=== PATIENT | female | born 1995 | race Caucasian/White ===

== ENCOUNTER 2024-08-07 09:47 | Outpatient (AMB) | payer OTHER, SELFPAY ==
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
[2024-08-07 09:58] VITALS: BP 98/72; PULSE 64; O2SAT 98; BMI 29.9
== END 2024-08-07 10:21 | disposition home or self-care (01) ==
PROVIDERS: Absent Provider Psychiatry & Neurology Neurology; PCP Student in an Organized Health Care Education/Training Program; Visit Provider Psychiatry & Neurology Neurology
DX: R42 Dizziness and giddiness (principal); G43.109 Migraine with aura, not intractable, without status migrainosus
CPT/HCPCS: 99203

== ENCOUNTER → 2024-08-07 09:47 | Outpatient (BNVA) | payer OTHER, SELFPAY | PROVIDERS: Absent Provider Psychiatry & Neurology Neurology; PCP Student in an Organized Health Care Education/Training Program; Visit Provider Psychiatry & Neurology Neurology | DX: R42 Dizziness and giddiness (principal); G43.109 Migraine with aura, not intractable, without status migrainosus | CPT/HCPCS: 99202 ==

== ENCOUNTER 2024-10-06 10:05 | Outpatient (AMB) | payer OTHER, SELFPAY ==
[2024-10-06 10:07] VITALS: BP 106/74; BMI 29.9
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
--- OUTSIDE RECORDS SUMMARY | 2024-10-06 10:43 | XMS_ITS | Clinical Summary ---
Author Organization [facility] Address [address] [place] [address] Care Team Providers Care Dam Tender Assistant Name Role Phone RaullaneNaga Primary Care Provider [phone] Source Comments PLEASE NOTE, if this patient is a minor, it may be UNLAWFUL to discuss sensitive information that is contained in these records (such as FAMILY PLANNING, MENTAL HEALTH or SUBSTANCE ABUSE) with the minor patient's parent or other person without the patient's specific authorization.[facility] Allergies No known active allergies Medications polyethylene glycol (GLYCOLAX, MIRALAX) 17 gram/dose powder 0 6 Active VITAMIN B-6 25 mg tablet TK 1 T PO TID 0 6 Active beclomethasone (QVAR) 40 mcg/actuation inhalerIndications :Mild intermittent asthma without complication Inhale 2 Puffs into the lungs 2 (two) times daily. 1 Inhaler 3 6 Active ondansetron (ZOFRAN-ODT) 4 mg disintegrating tabletIndications: Nausea and vomiting in Take 1 Tab by mouth every 8 (eight) hours as needed for nausea. 10 Tab 0 6 Active nitrofurantoin, macrocrystal-monoh ydrate, (MACROBID) 100 mg capsuleIndications :Burning with urination Take 1 Cap by mouth 2 (two) times daily 14 Cap 0 7 Active albuterol sulfate (PROAIR HFA) 90 mcg/actuation inhalerIndications :Mild intermittent asthma without complication Inhale 2 Puffs into the lungs every 4 (four) hours as needed for shortness of breath or wheezing 8 g 2 7 Active diphenhydrAMINE (BENADRYL) 25 mg tabletIndications: Environmental allergies Take 1 Tab by mouth nightly at bedtime as needed for allergies 30 Tab 7 Active Active Problems Problem Noted Date Diagnosed Date Gallstones 03/31/2016 Overview (03/31/2016): Noted in ED, referred to Dr. Brown, general surgery 03/14/2016 Overview (03/31/2016): 03/09/16 [facility] ED for nausea and vomiting; rec'd fluids, zofran, pepcid 03/23/16 [facility] ED, given Rx for Zofran. Mild intermittent asthma 09/02/2015 Immunizations Name Administration Dates Next Due TDAP 09/02/2015 Family History Medical History Relation Name Comments Vision Problems Father Asthma Mother Bleeding/Blood Disorder Mother Vision Problems Sister Relation Name Status Comments Father Alive Mother Alive Sister Social History Tobacco Use Types Packs/Day Years Used Date Smoking Tobacco: Never Smokeless Tobacco: Never Alcohol Use Standard Drinks/Week Comments No 0 (1 standard drink = 0.6 oz pur e alcohol) Social Connections Answer Date Recorded Social Connections and Isolation 0 04/27/2019 Financial Resource Strain Answer Date R ecorded Financial Resource Strain 0 2018 Stress Answer Date Recorded Stress 0 04/27/2019 Physical Activity Answer Date Recorded Physical Activity 0 04/27/2019 Food Insecurity Answer Date Recorded Food 0 04/27/2019 Transportation Needs Answer Date Record ed Transportation 0 04/27/2019 Housing Stability Answer Date Recorded Housing 0 04/27/2019 Safety and Environment Answer Date Kevan rded Safety 0 04/27/2019 Utilities Answer Date Recorded Utilities 0 04/27/2019 Employment Answer Date Recorded Employment 0 04/27/2019 Comments No Sex and Gender Information Value Date Recorded Sex Assigned at Female 07/17/2017 5:10 AM PST Legal Sex Female 10:54 AM PDT Gender Identity Female 07/17/2017 5:10 AM PST Sexual Orientation Straight 07/17/2017 5: 10 AM PST Occupation Industry Job Start Date Job End Date [employer] Not on file Not on file Not on file Last Filed Vital Signs Vital Sign Reading Time Taken Comments Blood Pressure 107/57 03/22/2018 2:51 PM EDT Pulse 67 03/22/2018 2:51 PM EDT Temperature 37.1 ??C (98.7 ??F) 03/22/2018 2:51 PM ED T Respiratory Rate 18 03/22/2018 2:51 PM EDT Oxygen Saturation 98% 03/22/2018 2:51 PM EDT Inhaled Oxygen Concentration - - Weight 81.5 kg (179 lb 11.2 oz) 07/16/2017 4:16 PM EST Height 152.4 cm (5') 07/16/2017 4:16 PM EST Body Mass Index 35.1 07/16/2017 4:16 PM EST Plan of Treatment Not on file Care Teams Dam Tender Assistant Relationship Specialty Start Date End Date Naga Martins FNP [address] [place] [phone] PCP - General Family Medicine, [employer] 04/15/18
--- OUTSIDE RECORDS SUMMARY | 2024-10-06 10:43 | XMS_ITS | Clinical Summary ---
Author Organization [facility] Address [address] [place] [address] Phone Care Team Providers Care Recep Name Role Phone Miranda Godwin MD Primary Care Provider [phone] Allergies No known active allergies Medications Medication Sig Dispensed Refills Start Date End Date Status benzoyl peroxide (Foaming Acne Face Wash) 10 % external wash Aplly 2 times/day 04/16/2023 Active multivitamin tablet Take by mouth. A ctive levETIRAcetam (KEPPRA) 500 mg tablet Take 1 tablet (500 mg total) by mouth 2 (two) times a day for 14 days. 28 tablet 09/22/2024 Active Active Problems Problem Noted Date Diagnosed Date Brain aneurysm 09/30/2024 Obesity (BMI 30-39.9) 04/16/2023 Obesity, Class III, BMI 40-49.9 (morbid obesity) 05/24/2022 Encounters Date Type Department Care Team Description 09/30/2024 11:30 AM EST Office Visit Internal Medicine - [place] [address] [facility] [address] [place] [address] Miranda Godwin MD Encounter for annual physical exam (Primary Dx); Acne, unspecified acne type; Pain of left lower extremity; Neck pain; Brain aneurysm; Vitamin D deficiency; Other fatigue; Encounter for lipid screening for cardiovascular disease; Other abnormal glucose 09/26/2024 Telephone Neurosurgery [place] [address] [place] [address] Magda Sullivan [place] APPOINTMENT CALL (Pt called 8:13AM to ask about her referral and scheduling appointment. Explained to Pt that we have reached out to Provider to review and schedule, to see Pt in [place]. Confirmed Pt information and explained we will continue to follow this today. Pt asked that we please get back to her as soon as we can. ) 09/22/2024 4:39 PM EST - 09/22/2024 11:16 PM EST Emergency [facility] Emergency [address] [place] [address] Miguel Mcduffie MD Right internal carotid artery aneurysm (Primary Dx) Discharge Disposition: Home or Self Care from Last 3 Months Surgical History Surgery Date Site/Laterality Comments CHOLECYSTECTOMY 2019 PROCEDURE: HI CHOLECYSTECTOMY Medical History Medical History Date Comments Heartburn DX:Heartburn Brain aneurysm Family History Medical History Relation Name Comments No Known Problems Brother 1 No Known Problems Brother 2 No Known Problems Father No Known Problems Maternal Grandfather Diabetes Maternal Grandmother Anemia Mother No Known Problems Sister 1 No Known Problems Sister 2 Breast cancer Neg Hx Colon cancer Neg Hx Ovarian cancer Neg Hx Relation Name Status Comments Brother 1 Alive Brother 2 Alive Father Alive Maternal Grandfather Alive Maternal Grandmother Alive Mother Alive Sister 1 Alive Sister 2 Alive Social History Tobacco Use Types Packs/Day Years Used Date Smoking Tobacco: Never Smokeless Tobacco: Never Tobacco Cessation:Counseling Given: Not Answered Alcohol Use Standard Drinks/Week Comments Never 0 (1 standard drink = 0.6 oz pur e alcohol) Housing Instability Answer Date Recorde d Are you worried that in the next 2 months you may not have stable housing? No 09/29/2024 Food Access & Nutrition Answer Date Rec orded Do you have access to a vari ety of food including fruits and vegetables? Yes 09/29/2024 Access to Healthcare Answer Date Record ed Within the last 3 months, larisa henao many times did you visit the emergency department for your medical care? 1 09/29/2024 Health Literacy Answer Date Recorded How often do you need to hav e someone help you when you read instructions, pamphlets, or other written material from your doctor or pharmacy? Never 09/29/2024 Caregiver: How often do you need to have someone help you when you read instructions, pamphlets, or other written material from your doctor or pharmacy? Not on file 09/29/2024 Financial Risk Answer Date Recorded How hard is it for you to pa y for the very basics like food, housing, medical care, and air conditioning / heating? Hard 09/29/2024 Transportation Answer Date Recorded Has the lack of transportati on kept you from meetings, work, or from getting things needed for daily living? No Has the lack of transportati on kept you from medical appointments or from getting medications? No 09/29/2024 Social Isolation Answer Date Recorded How often do you feel lonely or isolated from th ose around you? Rarely 09/29/2024 Food Risk Answer Date Recorded Within the past 12 months we worried whether our food would run out before we got money to buy more. Never true 025 Within the past 12 months th e food we bought just didn't last and we didn't have money to get more. Sometimes true 09/29/2024 Dependent Care Answer Date Recorded Do you need help finding or paying for care for your loved ones. For example, early childhood special educator or elderly care for an older adult? No 09/29/2024 Education Answer Date Recorded Do you think completing more education or training, like finishing a GED, going to college, or learning a trade, would be helpful for you? Yes 09/29/2024 Employment and Income Answer Date Recor ded During the last four weeks, have you been actively looking for work? No 09/29/2024 Living Situation Answer Date Recorded What is your living situation? 0 09/29/2024 Sex and Gender Information Value Date Recorded Sex Assigned at Female 09/22/2024 4:53 PM EST Gender Identity Female 09/22/2024 4:53 PM EST Sexual Orientation Straight 09/22/2024 4: 53 PM EST Job Start Date Occupation Industry Not on file Not on file Not on file Obstetrics History Last Filed Vital Signs Vital Sign Reading Time Taken Comments Blood Pressure 102/60 09/30/2024 11:40 AM EST Pulse 65 09/30/2024 11:40 AM EST Temperature 36.1 ??C (97 ??F) 09/30/2024 11:40 AM EST Respiratory Rate 17 09/22/2024 10:30 PM EST Oxygen Saturation 99% 09/30/2024 11:40 AM EST Inhaled Oxygen Concentration - - Weight 68 kg (150 lb) 09/30/2024 11:40 AM EST Height 152.4 cm (5') 09/30/2024 11:40 AM EST Body Mass Index 29.29 09/30/2024 11:40 AM EST Plan of Treatment Upcoming Encounters Date Type Department Care Team (Late st Contact Info) Description 10/24/2024 9:00 AM EST Consult [facility]surgery [place] [facility] [place] [address] [place] [phone] Shiva Rodarte MD [address] [facility] [address] [place] [address] 11/24/2024 2:30 PM EDT Consult Vascular Surgery - [place] [address] [place] [phone] [place] Roman MD [address] [facility] [address] [place] [address] Health Maintenance Due Date Last Done Comments Pneumococcal Vaccine: Pediatrics (0 to 5 Years) and At-Risk Patients (6 to 64 Years) (1 of 2 - PCV) 1999 Hepatitis B Vaccines (1 of 3 - 19+ 3-dose series) 2012 COVID-19 Vaccine ( - 2023-2 5 season) 2024 02/03/2021, 01/06/2021 Influenza Vaccine (#1) 2024 05/28/2019 Depression Screening 09/29/2025 09/29/2024 Social Influencers of Health Screening 09/29/2025 09/29/2024 Cervical Cancer Screening: HPV 01/29/2029 01/30/2024 DTaP,Tdap,and Td Vaccines (3 - Td or Tdap) 05/28/2029 05/28/2019, 09/02/2015 Cholesterol Screening (Lipid Panel) 09/30/2029 09/30/2024, 09/21/2023 HIV Screening Completed 09/26/2023 Hepatitis C Screening Completed 09/26/2023 HIB Vaccines Aged Out No longer eligi ble based on patient's age to complete this topic HPV Vaccines Aged Out No longer eligi ble based on patient's age to complete this topic Hepatitis A Vaccines Aged Out No long er eligible based on patient's age to complete this topic IPV Vaccines Aged Out No longer eligi ble based on patient's age to complete this topic MMR Vaccines Aged Out No longer eligi ble based on patient's age to complete this topic Meningococcal ACWY Vaccine Aged Out N o longer eligible based on patient's age to complete this topic RSV Immunization Patients Under 20 months Aged Out No longer eligible b ased on patient's age to complete this topic Varicella Vaccines Aged Out No longer eligible based on patient's age to complete this topic Procedures Procedure Name Priority Date/Time Associated Diagnosis Comments MAGNESIUM Routine 09/30/2024 12:21 PM EST Encounter for annual physical exam THYROID STIMULATING HORMONE WITH REFLEX TO FREE T4 AND FREE T3 Routine 09/30/2024 12:21 PM EST Encounter for annual physical exam Other fatigue VITAMIN D 25 HYDROXY Routine 09/30/2024 12:21 PM EST Encounter for annual physical exam Vitamin D deficiency LIPID PANEL WITH REFLEX TO DIRECT LDL Routine 09/30/2024 12:21 PM EST Encounter for annual physical exam Encounter for lipid screening for cardiovascular disease COMPREHENSIVE METABOLIC PANEL Routine 09/30/2024 12:21 PM EST Encounter for annual physical exam VITAMIN B12 Routine 09/30/2024 12:21 PM EST Encounter for annual physical exam Other fatigue HEMOGLOBIN A1C Routine 09/30/2024 12:21 PM EST Encounter for annual physical exam Other abnormal glucose CT ANGIO HEAD/NECK WO AND/OR W CONTRAST STAT 09/22/2024 9:[address] HEAD WO CONTRAST STAT 09/22/2024 7 :28 PM EST POC , URINE DIAGNOSTIC STAT 09/22/2024 7:05 PM EST METHADONE SCREEN, URINE STAT 09/22/2024 6:49 PM EST FENTANYL, URINE STAT 09/22/2024 6:49 PM EST DRUG ABUSE SCREEN 8A PANEL, URINE STAT 09/22/2024 6:49 PM EST PHENCYCLIDINE, URINE STAT 09/22/2024 6:49 PM EST LACTATE, WITH REFLEX STAT 09/22/2024 6:09 PM EST SALICYLATE LEVEL STAT Add-on 09/22/2024 4:55 PM EST ACETAMINOPHEN LEVEL STAT Add-on 09/22/2024 4 :55 PM EST HCG, SERUM, QUALITATIVE STAT Add-on 09/22/2024 4:55 PM EST PROLACTIN STAT 09/22/2024 4:55 PM EST CBC WITH AUTO DIFFERENTIAL STAT 09/22/2024 4:55 PM EST ETHANOL STAT 09/22/2024 4:55 PM EST MAGNESIUM STAT 09/22/2024 4:55 PM EST BASIC METABOLIC PANEL STAT 09/22/2024 4:55 PM EST CBC AND DIFFERENTIAL STAT 09/22/2024 4:55 PM EST HPV Routine 01/30/2024 HEPATITIS C SCREENING Routine 09/26/2023 HIV SCREENING Routine 09/26/2023 from Last 3 Months or Most Recently Relevant to Health Maintenance Results * Thyroid stimulating hormone with reflex to free t4 and free t3 (09/30/2024 12:21 PM EST) TSH 1.16 0.40 - 4.00 mcIU/mL LAB CHEMISTRY METHOD 09/30/2024 3:03 PM EST [facility]) [facility] Blood Venous blood specimen / Unknown Venipuncture / Unknown 09/30/2024 12:21 PM EST 09/30/2024 12:21 PM EST Miranda Godwin MD LAB BLOOD ORDERABLES [facility] [address] [place] [address], [place] [phone] * Lipid panel with reflex to direct LDL (09/30/2024 12:21 PM EST) [facility] Cholesterol 144 0 - 200 mg/dL LAB CHEMISTRY METHOD 09/30/2024 3:22 PM EST [facility] Triglycerides 105 0 - 150 mg/dL LAB CHEMISTRY METHOD 09/30/2024 3:22 PM EST [facility] HDL 58 >=40 mg/dL LAB CHEMISTRY METHOD 09/30/2024 3:22 PM EST [facility] LDL Calculated 65 0 - 100 mg/dL LAB CHEMISTRY METHOD 09/30/2024 3:22 PM EST [facility] VLDL Cholesterol César 21 mg/dL LAB CHEMISTRY METHOD 09/30/2024 3:22 PM EST [facility] Non HDL Chol. (LDL+VLDL) 86 <145 mg/dL LAB CHEMISTRY METHOD 09/30/2024 3:22 PM EST [facility] Chol/HDL Ratio 2.5 0.0 - 4.4 LAB CHEMISTRY METHOD 09/30/2024 3:22 PM EST [facility] Blood Venous blood specimen / Unknown Venipuncture / Unknown 09/30/2024 12:21 PM EST 09/30/2024 12:21 PM EST Miranda Godwin MD LAB BLOOD ORDERABLES [facility] [address] [place] [address], [place] [phone] * Vitamin D 25 hydroxy (09/30/2024 12:21 PM EST) Vit D, 25-Hydroxy 37.6 30.0 - 80.0 ng/mL LAB CHEMISTRY METHOD 09/30/2024 3:03 PM EST [facility] Blood Venous blood specimen / Unknown Venipuncture / Unknown 09/30/2024 12:21 PM EST 09/30/2024 12:21 PM EST Miranda Godwin MD LAB BLOOD ORDERABLES Performing Organization Address City/[facility]/ZIP Co de Phone Number [facility] [address] [place] [address], * Magnesium (09/30/2024 12:21 PM EST) Only the most recent of2 resultswithin the time period is included. Pathologist [facility] Magnesium 2.1 1.9 - 2.6 mg/dL LAB CHEMISTRY METHOD 09/30/2024 2:56 PM EST [facility] Blood Venous blood specimen / Unknown Venipuncture / Unknown 09/30/2024 12:21 PM EST 09/30/2024 12:21 PM EST Miranda Godwin MD LAB BLOOD ORDERABLES Performing Organization Address City/[facility]/ZIP Co de Phone Number [facility] [address] [place] [address], * Hemoglobin A1c (09/30/2024 12:21 PM EST) [facility] Hemoglobin A1C 5.0 <6.5 % LAB CHEMISTRY METHOD 09/30/2024 9:13 PM EST [facility] Mean Bld Glu Estim. 97 mg/dL LAB CHEMISTRY METHOD 09/30/2024 9:13 PM EST [facility] Blood Venous blood specimen / Unknown Venipuncture / Unknown 09/30/2024 12:21 PM EST 09/30/2024 12:21 PM EST Miranda Godwin MD LAB BLOOD ORDERABLES Performing Organization Address City/[facility]/ZIP Co de Phone Number [facility] [address] [place] [address], * (ABNORMAL) Vitamin B12 (09/30/2024 12:21 PM EST) [facility] Vitamin B-12 1,283(H) 250 - 900 pcg/mL LAB CHEMISTRY METHOD 09/30/2024 3:22 PM [facility] Blood Venous blood specimen / Unknown Venipuncture / Unknown 09/30/2024 12:21 PM EST 09/30/2024 12:21 PM EST Miranda Godwin MD LAB BLOOD ORDERABLES Performing Organization Address [facility]/ZIP Co de Phone Number [facility] [address] [place] [address], * Comprehensive metabolic panel (09/30/2024 12:21 PM EST) [facility] Sodium 136 133 - 145 mmol/L LAB CHEMISTRY METHOD 09/30/2024 3:22 PM [facility] Potassium 4.2 3.5 - 5.5 mmol/L LAB CHEMISTRY METHOD 09/30/2024 3:22 PM [facility] Chloride 102 96 - 110 mmol/L LAB CHEMISTRY METHOD 09/30/2024 3:22 PM [facility] CO2 31 21 - 32 mmol/L LAB CHEMISTRY METHOD 09/30/2024 3:22 PM [facility] Anion Gap 3 3 - 11 LAB CHEMISTRY METHOD 09/30/2024 3:22 PM [facility] Glucose 84 70 - 100 mg/dL LAB CHEMISTRY METHOD 09/30/2024 3:22 PM [facility] BUN 11 5 - 25 mg/dL LAB CHEMISTRY METHOD 09/30/2024 3:22 PM [facility] Creatinine 0.65 0.50 - 1.10 mg/dL LAB CHEMISTRY METHOD 09/30/2024 3:22 PM [facility] eGFR 121 >=60 mL/min/1. 73m2 LAB CHEMISTRY METHOD 09/30/2024 3:22 PM [facility] Comment:Calculation based on the??Chronic Kidney Disease Epidemiology Collaboration (CKD-EPI) equation refit??without adjustment for race. BUN/Creatinine Ratio 16.9 LAB CHEMISTRY METHOD 09/30/2024 3:22 PM [facility] Calcium 9.6 8.5 - 10.5 mg/dL LAB CHEMISTRY METHOD 09/30/2024 3:22 PM [facility] AST (SGOT) 13 10 - 42 unit/L LAB CHEMISTRY METHOD 09/30/2024 3:22 PM [facility] ALT (SGPT) 24 10 - 60 unit/L LAB CHEMISTRY METHOD 09/30/2024 3:22 PM [facility] Alkaline Phosphatase 50 42 - 121 unit/L LAB CHEMISTRY METHOD 09/30/2024 3:22 PM [facility] Total Protein 7.7 6.0 - 8.0 g/dL LAB CHEMISTRY METHOD 09/30/2024 3:22 PM [facility] Albumin 4.2 3.2 - 5.0 g/dL LAB CHEMISTRY METHOD 09/30/2024 3:22 PM [facility] Total Bilirubin 0.5 0.0 - 1.4 mg/dL LAB CHEMISTRY METHOD 09/30/2024 3:22 PM [facility] Blood Venous blood specimen / Unknown Venipuncture / Unknown 09/30/2024 12:21 PM EST 09/30/2024 12:21 PM EST Miranda Godwin MD LAB BLOOD ORDERABLES [facility] [address] [place] [address], * CT Angio Head/Neck wo and/or w Contrast (09/22/2024 9:14 PM EST) Anatomical Region Laterality Modality Head and Neck Computed Tomogra phy 09/22/2024 10:0 8 PM EST Impressions 09/22/2024 10:08 PM EST 1. Fusiform partially calcified 6 mm aneurysmal dilatation of the right ICA carotid terminus. 2. No large vessel occlusion. If clinical concern persists consider follow-up MRI. 3. Patent cervical vasculature. This document has been electronically signed by: Javid Buckner MD on 09/22/2024 22:08:24 Narrative 09/22/2024 10:[address] angiography head and neck with contrast. 3D Postprocessing. Comparison: CT - CT HEAD WO CONTRAST - 09/22/24 19:25 EST Findings: Aortic arch and cervical great vessels are patent. Hypoplastic left A1 segment GULSHAN. The anterior, middle and posterior circulations are patent. Fusiform partially calcified 6 mm aneurysmal dilatation of the right ICA carotid terminus. No abnormal intracranial enhancement. The visualized thyroid gland is unremarkable. No cervical mass or fluid collection. Lobulated mucosal thickening in the paranasal sinuses. Lung apices clear. No acute fracture. Scattered prominent lymph nodes throughout the neck, may be reactive however are nonspecific. Minimal nonspecific subcutaneous nodularity in the maxillofacial regions, right more than left series 2, image 229 for example. Procedure Note Javid Buckner MD - 09/22/2024 CT angiography head and neck with contrast. 3D Postprocessing. Comparison: CT - CT HEAD WO CONTRAST - 09/22/24 19:25 EST Findings: Aortic arch and cervical great vessels are patent. Hypoplastic left A1 segment GULSHAN. The anterior, middle and posterior circulations are patent. Fusiform partially calcified 6 mm aneurysmal dilatation of the right ICA carotid terminus. No abnormal intracranial enhancement. The visualized thyroid gland is unremarkable. No cervical mass or fluid collection. Lobulated mucosal thickening in the paranasal sinuses. Lung apices clear. No acute fracture. Scattered prominent lymph nodes throughout the neck, may be reactive however are nonspecific. Minimal nonspecific subcutaneous nodularity in the maxillofacialregions, right more than left series 2, image 229 for example. IMPRESSION: 1. Fusiform partially calcified 6 mm aneurysmal dilatation of the right ICA carotid terminus. 2. No large vessel occlusion. If clinical concern persists consider follow-up MRI. 3. Patent cervical vasculature. This document has been electronically signed by: Javid Buckner MD on 09/22/2024 22:08:[address] PROCEDURES * CT Head wo Contrast (09/22/2024 7:28 PM EST) Anatomical Region Laterality Modality Head and Neck Computed Tomogra phy 09/22/2024 7:53 PM EST Addenda Addendum by Javid Buckner MD on 09/22/2024 8:43 PM EST ADDENDUM: Addendum: Images discussed with Sung AGUILA, at 7:41 p.m. on 09/22/2024. Additional history provided, the patient has not had any intracranial procedures. The tubular like aneurysmal calcification noted of the right carotid terminus measuring 7 mm is likely a chronic calcified aneurysm. However this may be further evaluated with CTA head as indicated. This document has been electronically signed by: Javid Buckner MD on 09/22/2024 20:43:45 Impressions 09/22/2024 7:53 PM EST No acute intracranial findings. Additional findings as described. This document has been electronically signed by: Javid Buckner MD on 09/22/2024 19:53:50 Narrative 09/22/2024 7:[address] head without contrast Comparison: None Findings: Questionable pipeline stent graft along the right carotid terminus with 7 mm aneurysmal dilatation, should be correlated with prior procedure and clinically. No acute territorial infarction, intracranial hemorrhage, midline shift or hydrocephalus. 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 No significant atrophy-like change or white matter disease. Mucosal thickening throughout the paranasal sinuses. Mucosal thickening throughout the paranasal sinuses. The orbits are unremarkable. No skull fracture. Skin thickening with a small possible cyst measuring 1 cm in the right maxillofacial region incompletely imaged. Procedure Note Javid Buckner MD - 09/22/2024 CT head without contrast Comparison: None Findings: Questionable pipeline stent graft along the right carotid terminus with7 mm aneurysmal dilatation, should be correlated with prior procedure and clinically. No acute territorial infarction, intracranial hemorrhage, midline shift or hydrocephalus. 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 No significant atrophy-like change or white matter disease. Mucosal thickening throughout the paranasal sinuses. Mucosal thickening throughout the paranasal sinuses. The orbits are unremarkable. No skull fracture. Skin thickening with a small possible cyst measuring 1 cm in the right maxillofacial region incompletely imaged. IMPRESSION: No acute intracranial findings. Additional findings as described. This document has been electronically signed by: Javid Buckner MD on 09/22/2024 19:53:[address] PROCEDURES * POC , urine manually resulted (09/22/2024 7:05 PM EST) HCG, Ur POC Negative Negative POC hCG Int QC Pass? Yes Yes Urine Urine specimen obtained by clean catch procedure / Unknown 09/22/2024 7:05 PM EST Miguel Mcduffie MD POINT OF CARE TEST ENTER/EDIT ORDERABLES * Drug abuse screen 8a panel, urine (09/22/2024 6:49 PM EST) [facility] Amphetamine Screen, Ur Negative Negative LAB CHEMISTRY METHOD 09/22/2024 7:39 PM [facility] Comment:Certain OTC medicati ons containing ephedrine, phenylephrine, pseudoephedrine and phenylpropanolamine can cause false positive results. Barbiturate Screen, Ur Negative Negative LAB CHEMISTRY METHOD 09/22/2024 7:39 PM EST [facility] Benzodiazepine Screen, Ur Negative Negative LAB CHEMISTRY METHOD 09/22/2024 7:39 PM [facility] Cocaine Screen, Ur Negative Negative LAB CHEMISTRY METHOD 09/22/2024 7:39 PM [facility] Opiate Screen, Ur Negative Negative LAB CHEMISTRY METHOD 09/22/2024 7:39 PM [facility] Cannabinoid (THC) Screen, Ur Negative Negative LAB CHEMISTRY METHOD 09/22/2024 7:39 PM EST [facility] Comment:Specimens from patie nts taking pantoprazole sodium (Protonix) have been shown to produce false positive results. Oxycodone Screen, Ur Negative Negative LAB CHEMISTRY METHOD 09/22/2024 7:39 PM EST [facility] Fentanyl, Ur Negative Negative LAB CHEMISTRY METHOD 09/22/2024 7:39 PM EST [facility] Urine Urine specimen obtained by clean catch procedure / Unknown Non-blood Collection / Unknown 09/22/2024 6:49 PM EST 09/22/2024 7:04 PM EST Narrative [facility] - 09/22/2024 7:39 PM EST Assay cutoffs: Amphetamines ? 1000 ng/mL Barbiturates ?200 ng/mL Benzodiazepines ?? 200 ng/mL Cocaine ? 300 ng/mL Fentanyl ?1 ng/mL Opiates ? 300 ng/mL Oxycodone ? 100 ng/mL THC ?50 ng/mL Semi-quantitative assay for screening purposes only. Unconfirmed screening result should not be used for non-medical purposes. *ALTERNATE METHOD CONFIRMATION DONE UPON REQUEST ONLY* Rj AGUILA LAB URINE ORDERAB LES [facility] [address] [place] [address], * Methadone, urine (09/22/2024 6:49 PM EST) Methadone Screen, Urine Negative Negative LAB CHEMISTRY METHOD 09/22/2024 7:39 PM EST [facility] Comment: Assay cutoff 300 ng/mL Semi-quantitative assay for screening purposes only. Unconfirmed screening result should not be used for non-medical purposes. *ALTERNATE METHOD CONFIRMATION DONE UPON REQUEST ONLY* Urine Urine specimen obtained by clean catch procedure / Unknown Non-blood Collection / Unknown 09/22/2024 6:49 PM EST 09/22/2024 7:04 PM EST Miguel Mcduffie MD LAB URINE ORDERABLE S Performing Organization Address [facility]/ZIP Co de Phone Number [facility] [address] [place] [address], [place] [phone] * Phencyclidine, urine (09/22/2024 6:49 PM EST) PCP Scrn, Ur Negative Negative LAB CHEMISTRY METHOD 09/22/2024 7:39 PM EST [facility] Comment: Assay cutoff 25 ng/mL Semi-quantitative assay for screening purposes only. Unconfirmed screening result should not be used for non-medical purposes. *ALTERNATE METHOD CONFIRMATION DONE UPON REQUEST ONLY* Urine Urine specimen obtained by clean catch procedure / Unknown Non-blood Collection / Unknown 09/22/2024 6:49 PM EST 09/22/2024 7:04 PM EST Rj AGUILA LAB URINE ORDERAB LES Performing Organization Address [facility]/ZIP Co de Phone Number [facility] [address] [place] [address], [place] [phone] * Fentanyl urine (09/22/2024 6:49 PM EST) Fentanyl, Ur Negative Negative LAB CHEMISTRY METHOD 09/22/2024 7:39 PM EST [facility] Urine Urine specimen obtained by clean catch procedure / Unknown Non-blood Collection / Unknown 09/22/2024 6:49 PM EST 09/22/2024 7:04 PM EST Narrative [facility] - 09/22/2024 7:39 PM EST Assay cutoff 1 ng/mL Semi-quantitative assay for screening purposes only. Unconfirmed screening result should not be used for non-medical purposes. *ALTERNATE METHOD CONFIRMATION DONE UPON REQUEST ONLY* Miguel Mcduffie MD LAB URINE ORDERABLE S Performing Organization Address [facility]/ZIP Co de Phone Number [facility] [address] [place] [address], [place] [phone] * Lactate, with reflex (09/22/2024 6:09 PM EST) Pathologist [facility] [place] LACTIC ACID 2.0 0.4 - 2.0 mmol/L LAB CHEMISTRY METHOD 09/22/2024 7:08 PM EST [facility] Blood Venous blood specimen / Unknown Venipuncture / Unknown 09/22/2024 6:09 PM EST 09/22/2024 6:30 PM EST Rj AGUILA LAB BLOOD ORDERAB LES Performing Organization Address [facility]/ZIP Co de Phone Number [facility] [address] [place] [address], [place] [phone] * (ABNORMAL) CBC auto differential (09/22/2024 4:55 PM EST) [facility] WBC 8.3 4.8 - 10.8 K/mcL LAB HEMETOLOGY METHOD 09/22/2024 5:35 PM [facility] RBC 3.90 3.80 - 4.80 M/mcL LAB HEMETOLOGY METHOD 09/22/2024 5:35 PM [facility] Hemoglobin 11.9 11.5 - 16.0 g/dL LAB HEMETOLOGY METHOD 09/22/2024 5:35 PM [facility] Hematocrit 36.0 35.0 - 47.0 % LAB HEMETOLOGY METHOD 09/22/2024 5:35 PM [facility] MCV 92.5 79.0 - 98.0 FL LAB HEMETOLOGY METHOD 09/22/2024 5:35 PM [facility] MCH 30.6 27.0 - 32.0 pcg LAB HEMETOLOGY METHOD 09/22/2024 5:35 PM [facility] MCHC 33.1 32.0 - 37.0 g/dL LAB HEMETOLOGY METHOD 09/22/2024 5:35 PM [facility] RDW 11.9 11.0 - 15.0 % LAB HEMETOLOGY METHOD 09/22/2024 5:35 PM [facility] Platelets 267 130 - 400 K/mcL LAB HEMETOLOGY METHOD 09/22/2024 5:35 PM [facility] MPV 12.0(H) 7.0 - 11.0 FL LAB HEMETOLOGY METHOD 09/22/2024 5:35 PM [facility] NRBC 0.0 <1.0 % LAB HEMETOLOGY METHOD 09/22/2024 5:35 PM [facility] NRBC Absolute 0.00 <0.10 K/mcL LAB HEMETOLOGY METHOD 09/22/2024 5:35 PM [facility] Neutrophils Relative 47.5 % LAB HEMETOLOGY METHOD 09/22/2024 5:35 PM [facility] Lymphocytes Relative 42.9 % LAB HEMETOLOGY METHOD 09/22/2024 5:35 PM [facility] Monocytes Relative 5.8 % LAB HEMETOLOGY METHOD 09/22/2024 5:35 PM [facility] Eosinophils Relative 3.0 % LAB HEMETOLOGY METHOD 09/22/2024 5:35 PM [facility] Basophils Relative 0.6 % LAB HEMETOLOGY METHOD 09/22/2024 5:35 PM [facility] Immature Granulocytes Relative 0.2 % LAB HEMETOLOGY METHOD 09/22/2024 5:35 PM [facility] Neutrophils Absolute 3.92 1.50 - 7.00 K/mcL LAB HEMETOLOGY METHOD 09/22/2024 5:35 PM [facility] Lymphocytes Absolute 3.55 1.00 - 5.00 K/mcL LAB HEMETOLOGY METHOD 09/22/2024 5:35 PM EST [facility] Monocytes Absolute 0.48 0.20 - 1.00 K/[facility] LAB HEMETOLOGY METHOD 09/22/2024 5:35 PM EST [facility] Eosinophils Absolute 0.25 0.00 - 0.50 K/[facility] HEMETOLOGY METHOD 09/22/2024 5:35 PM EST [facility] Basophils Absolute 0.05 0.00 - 0.20 K/[facility] HEMETOLOGY METHOD 09/22/2024 5:35 PM EST [facility] Immature Granulocytes Absolute 0.02 0.00 - 0.03 K/[facility] HEMETOLOGY METHOD 09/22/2024 5:35 PM EST [facility] Blood Venous blood specimen / Unknown Venipuncture / Unknown 09/22/2024 4:55 PM EST 09/22/2024 5:23 PM EST Rj AGUILA LAB BLOOD ORDERAB LES [facility] [address] [place] [address], * Prolactin (09/22/2024 4:55 PM EST) Prolactin 86.40 See Comment ng/mL LAB CHEMISTRY METHOD 09/22/2024 6:01 PM EST [facility] Comment: Prolactin Reference Ranges (ng/mL) ??Non ?2.2 - ??30.3 ? 8.1 - 347.6 ??Postmenopausal 0.7 - ??31.5 Blood Venous blood specimen / Unknown Venipuncture / Unknown 09/22/2024 4:55 PM EST 09/22/2024 5:23 PM EST Rj AGUILA LAB BLOOD ORDERAB LES Performing Organization Address [facility]/ZIP Co de Phone Number [facility] [address] [place] [address], * hCG, serum, qualitative (09/22/2024 4:55 PM EST) hCG Qual Negative Negative 09/22/2024 6:19 PM EST [facility] Blood Venous blood specimen / Unknown Venipuncture / Unknown 09/22/2024 4:55 PM EST 09/22/2024 5:23 PM EST Rj AGUILA LAB BLOOD ORDERAB LES Performing Organization Address [facility] Co de Phone Number [facility] [address] [place] [address], [place] [phone] * Ethanol (09/22/2024 4:55 PM EST) Ethanol Level <3 0 - 10 mg/dL LAB CHEMISTRY METHOD 09/22/2024 6:02 PM EST [facility] Blood Venous blood specimen / Unknown Venipuncture / Unknown 09/22/2024 4:55 PM EST 09/22/2024 5:23 PM EST Rj AGUILA LAB BLOOD ORDERAB LES Performing Organization Address City/[facility]/ZIP Co de Phone Number [facility] [address] [place] [address], [place] [phone] * (ABNORMAL) Acetaminophen level (09/22/2024 4:55 PM EST) Acetaminophen Level <2.0(L) 10.0 - 30.0 mcg/mL LAB CHEMISTRY METHOD 09/22/2024 6:01 PM EST [facility] Blood Venous blood specimen / Unknown Venipuncture / Unknown 09/22/2024 4:55 PM EST 09/22/2024 5:23 PM EST Miguel Mcduffie MD LAB BLOOD ORDERABLE S [facility] [address] [place] [address], [place] [phone] * (ABNORMAL) Salicylate level (09/22/2024 4:55 PM EST) Salicylate Level <1.7(L) 2.0 - 29.0 mg/dL LAB CHEMISTRY METHOD 09/22/2024 6:01 PM EST [facility] Blood Venous blood specimen / Unknown Venipuncture / Unknown 09/22/2024 4:55 PM EST 09/22/2024 5:23 PM EST Miguel Mcduffie MD LAB BLOOD ORDERABLE S Performing Organization Address [facility]/ZIP Co de Phone Number [facility] [address] [place] [address], [place] [phone] * (ABNORMAL) Basic metabolic panel (09/22/2024 4:55 PM EST) Sodium 139 133 - 145 mmol/L LAB CHEMISTRY METHOD 09/22/2024 5:58 PM [facility] Potassium 3.4(L) 3.5 - 5.5 mmol/L LAB CHEMISTRY METHOD 09/22/2024 5:58 PM [facility] Chloride 105 96 - 110 mmol/L LAB CHEMISTRY METHOD 09/22/2024 5:58 PM [facility] CO2 29 21 - 32 mmol/L LAB CHEMISTRY METHOD 09/22/2024 5:58 PM [facility] Anion Gap 5 3 - 11 LAB CHEMISTRY METHOD 09/22/2024 5:58 PM [facility] Glucose 101(H) 70 - 100 mg/dL LAB CHEMISTRY METHOD 09/22/2024 5:58 PM [facility] BUN 10 5 - 25 mg/dL LAB CHEMISTRY METHOD 09/22/2024 5:58 PM EST [facility] Creatinine 0.72 0.50 - 1.10 mg/dL LAB CHEMISTRY METHOD 09/22/2024 5:58 PM EST [facility] eGFR 115 >=60 mL/min/1. 73m2 LAB CHEMISTRY METHOD 09/22/2024 5:58 PM EST [facility] Comment:Calculation based on the??Chronic Kidney Disease Epidemiology Collaboration (CKD-EPI) equation refit??without adjustment for race. BUN/Creatinine Ratio 13.9 LAB CHEMISTRY METHOD 09/22/2024 5:58 PM [facility] Calcium 9.0 8.5 - 10.5 mg/dL LAB CHEMISTRY METHOD 09/22/2024 5:58 PM EST [facility] Blood Venous blood specimen / Unknown Venipuncture / Unknown 09/22/2024 4:55 PM EST 09/22/2024 5:23 PM EST Rj AGUILA LAB BLOOD ORDERAB LES [facility] [address] [place] [address], * Cervical Cancer Screening: HPV (01/30/2024) [facility] Cervical Cancer Screening: HPV Abstracted, Negative Historical Provider MD CAROLINE CAMPA E * HIV Screening (09/26/2023) [facility] HIV Screening Abstracted Historical Provider MD CAROLINE CAMPA E * Hepatitis C Screening (09/26/2023) [facility] Hepatitis C Screening Abstracted Historical Provider MD CAROLINE Ivory from Last 3 Months or Most Recently Relevant to Health Maintenance Care Teams Recep Relationship Specialty Start Date End Date Miranda Godwin MD [address] [facility] [address] [place] [address] PCP - General 04/16/23
--- OUTSIDE RECORDS SUMMARY | 2024-10-06 10:43 | XMS_ITS | Encounter Summary ---
Author Organization [facility] Address [address] [place] [address] Care Team Providers Care Cyber Defense Incident Responder Name Role Phone Miranda Godwin MD Primary Care Provider [phone] Reason for Visit * Reason Comments Annual Exam Encounter Details Date Type Department Care Team (Latest Contact Info) Description 09/30/2024 11:30 AM EST Office Visit Internal Medicine - [place] 175 [facility] [address] [place] [id number] Miranda Godwin MD 175 [facility] [address] [place] [address] Encounter for annual physical exam (Primary Dx); Acne, unspecified acne type; Pain of left lower extremity; Neck pain; Brain aneurysm; Vitamin D deficiency; Other fatigue; Encounter for lipid screening for cardiovascular disease; Other abnormal glucose Social History Tobacco Use Types Packs/Day Years [...] ed Within the last 3 months, larisa w many times did you visit the emergency [...] care for your loved ones. For example, rn child or elderly care for an older adult? [...] file Not on file Not on file documented as of this encounter Last Filed Vital Signs Vital Sign Reading Time Taken Comments Blood Pressure 102/60 09/30/2024 11:40 AM EST Pulse 65 09/30/2024 11:40 AM EST Temperature 36.1 ??C (97 ??F) 09/30/2024 11:40 AM EST Respiratory Rate - - Oxygen Saturation 99% 09/30/2024 11:40 AM EST Inhaled Oxygen Concentration - - Weight 68 kg (150 lb) 09/30/2024 11:40 AM EST Height 152.4 cm (5') 09/30/2024 11:40 AM EST Body Mass Index 29.29 09/30/2024 11:40 AM EST documented in this encounter Progress Notes * Miranda Godwin MD - 09/30/2024 11:30 AM EST CHIEF COMPLAINT: Annual Exam IDENTIFIER: Missy García is a 29 y.o. old female who presents for evaluation of general medicalhealth. HPI: History of Present Illness The patient is a 29-year-old female presenting for an annual physical and follow-up. Leg pain - Reports shooting leg pain, but on examination no tenderness found. Neck Pain - Has neck pain for one week. - No history of falls or trauma. Acne - Acne has improved with various products. - Has not used the prescribed acne wash. - Not interested in a dermatology consultation. Brain Aneurysm - Diagnosed with a brain aneurysm on 09/22/2024 after an ER visit for vertigo and dizziness. - Initial neurology appointment delayed until 08/22/2024, where concerns were dismissed as stress. - Experienced generalized weakness and pallor, described as a small seizure, leading to the aneurysm discovery. - Referred to another neurologist with an appointment on 10/24/2024. - Rescheduled neurology appointment for 10/06/2024. - No history of seizures. - Advised not to return to work until cleared by a specialist. Fatigue - Reports fatigue despite a healthy diet and vitamins. - Attributes fatigue to stress from being a single mother and full-time work. - Bouse more energetic with regular exercise. Supplemental information: Not sexually active for the past year due to recent divorce. Maintains a balanced diet, has lost weight, and does not exercise regularly due to time constraints. No digestive issues or heartburn. Underwent gallbladder surgery in 2019. Family history of anemia (mother) and diabetes (maternal grandmother). No smoking, alcohol, or drug use. Employed as a occupational health professional. SOCIAL HISTORY She does not smoke, drink alcohol, or use drugs. She is and has 2 children. She lives withher children and a dog. She works as a occupational health professional. FAMILY HISTORY Mother has anemia. Maternal grandmother has diabetes. Uncertain about maternal grandmother's hypertension. Father, sister, and brothers are healthy. No issues with maternal grandfather. Uncertain about paternal grandparents' medical history. Patient does try to eat a balanced diet, does not exercise regularly Patient does not smoke, patient does not drink alcohol in excess, patient does not use street drugs, patient does not drink caffeinated beverages in excess. Patient is not sexually active. Reports 0 partners in the past 12 months. Health Maintenance: Health Maintenance Due Topic Date Due Pneumococcal Vaccine: Pediatrics (0 to 5 Years) and At-Risk Patients (6 to 64 Years) (1 of 2 - PCV)Never done Hepatitis B Vaccines (1 of 3 - 19+ 3-dose series) Never done Influenza Vaccine (1) 05/04/2024 COVID-19 Vaccine ( season) 2024 ROS: Review of Systems as per HPI PAST MEDICAL HISTORY: Patient Active Problem List Diagnosis Date Noted Brain aneurysm 09/30/2024 Obesity (BMI 30-39.9) 04/16/2023 Obesity, Class III, BMI 40-49.9 (morbid obesity) ([facility]) 05/24/2022 Past Surgical History: Procedure Laterality Date CHOLECYSTECTOMY 2018 PROCEDURE: OR CHOLECYSTECTOMY Most Recent Immunizations Administered Date(s) Administered Moderna SARS-CoV-2 COVID-19, mRNA, LNP-S, preservative free 02/03/2021 HEALTH MAINTENANCE: Health Maintenance Topic Date Due Pneumococcal Vaccine: Pediatrics (0 to 5 Years) and At-Risk Patients (6 to 64 Years) (1 of 2 - PCV)Never done Hepatitis B Vaccines (1 of 3 - 19+ 3-dose series) Never done Influenza Vaccine (1) 05/04/2024 COVID-19 Vaccine ( season) 2024 Depression Screening 09/29/2025 Social Influencers of Health Screening 09/29/2025 Cholesterol Screening (Lipid Panel) 09/21/2028 Cervical Cancer Screening: HPV 01/29/2029 DTaP,Tdap,and Td Vaccines (3 - Td or Tdap) 05/28/2029 HIV Screening Completed Hepatitis C Screening Completed HIB Vaccines Aged Out IPV Vaccines Aged Out Hepatitis A Vaccines Aged Out MMR Vaccines Aged Out Varicella Vaccines Aged Out Meningococcal ACWY Vaccine Aged Out HPV Vaccines Aged Out RSV Immunization Patients Under 20 months Aged Out SOCIAL HISTORY: Social History Tobacco Use Smoking status: Never Smokeless tobacco: Never Substance Use Topics Alcohol use: Never FAMILY HISTORY: Family History Problem Relation Name Age of Onset Diabetes Maternal Grandmother No Known Problems Maternal Grandfather Anemia Mother No Known Problems Father No Known Problems Sister No Known Problems Sister No Known Problems Brother No Known Problems Brother Breast cancer Neg Hx Ovarian cancer Neg Hx Colon cancer Neg Hx Family Status Relation Name Status MGM Alive MGF Alive Mother Alive Father Alive Sister Alive Sister Alive Brother Alive Brother Alive Neg Hx (Not Specified) No partnership data on file MEDICATIONS DISCONTINUED/REORDERED: There are no discontinued medications. ACTIVE MEDICATIONS: Outpatient Medications Marked as Taking for the 09/30/24 encounter (Office Visit) with Miranda Godwin MD Medication Sig Dispense Refill benzoyl peroxide (Foaming Acne Face Wash) 10 % external wash Aplly 2 times/day levETIRAcetam (KEPPRA) 500 mg tablet Take 1 tablet (500 mg total) by mouth 2 (two) times a day for 14 days. 28 tablet 0 multivitamin tablet Take by mouth. ALLERGIES: No Known Allergies PHYSICAL EXAM: Visit Vitals BP 102/60 Pulse 65 Temp 36.1 ??C (97 ??F) (Temporal) Ht 1.524 m (60 ) Wt 68 kg (150 lb) SpO2 99% BMI 29.29 kg/m?? Smoking Status Never BSA 1.65 m?? Body mass index is 29.29 kg/m??. Physical Exam General Appearance: well appearing and not in acute distress HEENT: Normocephalic. External ears normal. Nose normal. Mucous membranes are moist. Oropharynx is clear. Eyes: Conjunctivae normal. Respiratory: Lungs clear. Cardiovascular: Heart rhythm regular. Gastrointestinal: No abdominal pain. Back, Musculoskeletal: Normal range of motion. Normal cervical range of motion and neck supple. Extremities: No leg swelling. Skin: Warm and dry, no rash. Neurological: Alert. LABS: Admission on 09/22/2024, Discharged on 09/22/2024 Component Date Value Ref Range Status Sodium 09/22/2024 139 133 - 145 mmol/L Final Potassium 09/22/2024 3.4 (L) 3.5 - 5.5 mmol/L Final Chloride 09/22/2024 105 96 - 110 mmol/L Final CO2 09/22/2024 29 21 - 32 mmol/L Final Anion Gap 09/22/2024 5 3 - 11 Final Glucose 09/22/2024 101 (H) 70 - 100 mg/dL Final BUN 09/22/2024 10 5 - 25 mg/dL Final Creatinine 09/22/2024 0.72 0.50 - 1.10 mg/dL Final eGFR 09/22/2024 115 >=60 mL/min/1.73m2 Final BUN/Creatinine Ratio 09/22/2024 13.9 Final Calcium 09/22/2024 9.0 8.5 - 10.5 mg/dL Final Magnesium 09/22/2024 2.1 1.9 - 2.6 mg/dL Final PCP Scrn, Ur 09/22/2024 Negative Negative Final Amphetamine Screen, Ur 09/22/2024 Negative Negative Final Barbiturate Screen, Ur 09/22/2024 Negative Negative Final Benzodiazepine Screen, Ur 09/22/2024 Negative Negative Final Cocaine Screen, Ur 09/22/2024 Negative Negative Final Opiate Screen, Ur 09/22/2024 Negative Negative Final Cannabinoid (THC) Screen, Ur 09/22/2024 Negative Negative Final Oxycodone Screen, Ur 09/22/2024 Negative Negative Final Fentanyl, Ur 09/22/2024 Negative Negative Final Ethanol Level 09/22/2024 <3 0 - 10 mg/dL Final WBC 09/22/2024 8.3 4.8 - 10.8 K/mcL Final RBC 09/22/2024 3.90 3.80 - 4.80 M/mcL Final Hemoglobin 09/22/2024 11.9 11.5 - 16.0 g/dL Final Hematocrit 09/22/2024 36.0 35.0 - 47.0 % Final MCV 09/22/2024 92.5 79.0 - 98.0 FL Final MCH 09/22/2024 30.6 27.0 - 32.0 pcg Final MCHC 09/22/2024 33.1 32.0 - 37.0 g/dL Final RDW 09/22/2024 11.9 11.0 - 15.0 % Final Platelets 09/22/2024 267 130 - 400 K/mcL Final MPV 09/22/2024 12.0 (H) 7.0 - 11.0 FL Final NRBC 09/22/2024 0.0 <1.0 % Final NRBC Absolute 09/22/2024 0.00 <0.10 K/mcL Final Neutrophils Relative 09/22/2024 47.5 % Final Lymphocytes Relative 09/22/2024 42.9 % Final Monocytes Relative 09/22/2024 5.8 % Final Eosinophils Relative 09/22/2024 3.0 % Final Basophils Relative 09/22/2024 0.6 % Final Immature Granulocytes Relative 09/22/2024 0.2 % Final Neutrophils Absolute 09/22/2024 3.92 1.50 - 7.00 K/mcL Final Lymphocytes Absolute 09/22/2024 3.55 1.00 - 5.00 K/mcL Final Monocytes Absolute 09/22/2024 0.48 0.20 - 1.00 K/mcL Final Eosinophils Absolute 09/22/2024 0.25 0.00 - 0.50 K/mcL Final Basophils Absolute 09/22/2024 0.05 0.00 - 0.20 K/mcL Final Immature Granulocytes Absolute 09/22/2024 0.02 0.00 - 0.03 K/mcL Final Prolactin 09/22/2024 86.40 See Comment ng/mL Final hCG Qual 09/22/2024 Negative Negative Final Acetaminophen Level 09/22/2024 <2.0 (L) 10.0 - 30.0 mcg/mL Final Salicylate Level 09/22/2024 <1.7 (L) 2.0 - 29.0 mg/dL Final Fentanyl, Ur 09/22/2024 Negative Negative Final Methadone Screen, Urine 09/22/2024 Negative Negative Final LACTIC ACID 09/22/2024 2.0 0.4 - 2.0 mmol/L Final HCG, Ur POC 09/22/2024 Negative Negative Final POC hCG Int QC Pass? 09/22/2024 Yes Yes Final Abstract on 07/30/2024 Component Date Value Ref Range Status Gonorrhea/Chlamydia Screening 01/30/2024 Abstracted Final HM Hepatitis C Screening 09/26/2023 Abstracted Final HIV Screening 09/26/2023 Abstracted Final Annual BMP Blood Test 09/21/2023 Abstracted Final Cervical Cancer Screening: HPV 01/30/2024 Abstracted, Negative Final HM Pap smear 01/30/2024 Abstracted, Negative Final LDL/HDL Ratio 09/21/2023 3 0 - 4 Final Triglycerides 09/21/2023 57 0 - 150 mg/dL Final Cholesterol 09/21/2023 136 0 - 200 mg/dL Final HDL 09/21/2023 50 40 mg/dL Final LDL Cholesterol 09/21/2023 75 0 - 100 mg/dL Final Hemoglobin A1C 09/21/2023 4.9 6.5 % Final Results Laboratory Studies Potassium mildly low. CBC and calcium normal. Imaging Brain aneurysm in right internal carotid artery, 6 mm. IMPRESSION: 1. Encounter for annual physical exam 2. Acne, unspecified acne type 3. Pain of left lower extremity 4. Neck pain 5. Brain aneurysm 6. Vitamin D deficiency 7. Other fatigue 8. Encounter for lipid screening for cardiovascular disease 9. Other abnormal glucose PLAN: Encounter for annual physical exam (Primary) - Hemoglobin A1c; Future - Vitamin B12; Future - Comprehensive metabolic panel; Future - Lipid panel with reflex to direct LDL; Future - Vitamin D 25 hydroxy; Future - Thyroid stimulating hormone with reflex to free t4 and free t3; Future - Magnesium; Future Acne, unspecified acne type Pain of left lower extremity Neck pain Brain aneurysm Vitamin D deficiency - Vitamin D 25 hydroxy; Future Other fatigue - Vitamin B12; Future - Thyroid stimulating hormone with reflex to free t4 and free t3; Future Encounter for lipid screening for cardiovascular disease - Lipid panel with reflex to direct LDL; Future Other abnormal glucose - Hemoglobin A1c; Future Assessment & Plan 1. Leg pain: Not associated with sciatica due to lack of lower back pain. 2. Acne: Improved with current treatment. 3. Brain aneurysm: 6 mm. Dizziness and unusual sensations unlikely related to aneurysm. - Repeat referral to vascular specialist - MRI ordered to confirm aneurysm details - Work note issued for return on 10/01/2024 4. Fatigue: Likely due to stress. - Advised regular exercise, 30 minutes daily - Adequate sleep 5. Health maintenance. - Potassium slightly low, other labs normal - Due for COVID-19 booster and influenza vaccine - Advised healthy diet, regular exercise, annual eye and dental check-ups, sun protection, seatbeltuse, and smoke alarm checks - Monthly self-breast exams recommended - Recheck potassium levels; consider supplementation if low - Lab tests for vitamin D, B12, A1c, cholesterol, thyroid hormone, magnesium, and electrolytes Follow-up - Scheduled in 6 months. Or sooner as needed. May cancel if well and schedule annual physical in 1 year. PROCEDURE Underwent gallbladder surgery in 2019. Genetic cancer syndrome screening done: Not applicable Glaucoma screening regularly I offered STD testing to the patient, declined Discussed healthy dietary choices. Discussed increasing dietary fiber through fruits, veggies, whole grains. Advised the patient to exercise 30mins a day most days of the week. Advised patient to see a dentist at least yearly. Advised patient to use sunscreen, hats, clothing while outdoors in direct sunlight. Advised patient to wear a seatbelt while in the car. Advised the patient to check smoke/fire alarms at home regularly. Pelvic exams and PAPs regularly Discussed safe sex practices Self breast exams monthly. I have reviewed the following sections of the chart: Past Medical History Family History Social History All the history reviewed, counseling done. All the questions and concerns were answered Advised the patient to call me if any problems. Patient understands the plan. Patient is in agreement with the plan. I have obtained verbal consent from Missy García prior to the recording. I have advised Gucci that she may refuse the recording and require the recording to be turned off at any time during this encounter. Miranda Godwin MD on 09/30/2024 at 1:18 PM EST documented in this encounter Plan of Treatment Upcoming Encounters Date Type Department Care Team (Late st Contact Info) Description 10/24/2024 9:00 AM EST Consult Neurosurgery [place] 175 [facility] [address] [place] [phone] Shiva Rodarte MD [facility] [address] [address] 11/24/2024 2:30 PM EDT Consult Vascular Surgery - [place] 300 [facility] [address] [place] [phone] Blanco Roman MD 300 [facility] [address] [place] [address] documented as of this encounter Results * Magnesium (09/30/2024 12:21 PM EST) Magnesium 2.1 1.9 - 2.6 mg/dL LAB CHEMISTRY METHOD 09/30/2024 2:56 PM EST [facility] Blood Venous blood specimen / Unknown Venipuncture / Unknown 09/30/2024 12:21 PM EST 09/30/2024 12:21 PM EST Miranda Godwin MD LAB BLOOD ORDERABLES [facility] [address] [place] [address], [place] [phone] * Thyroid stimulating hormone with reflex to free t4 and free t3 (09/30/2024 12:21 PM EST) Pathologist [facility] TSH 1.16 0.40 - 4.00 mcIU/mL LAB CHEMISTRY METHOD 09/30/2024 3:03 PM EST [facility] Blood Venous blood specimen / Unknown Venipuncture / Unknown 09/30/2024 12:21 PM EST 09/30/2024 12:21 PM EST Miranda Godwin MD LAB BLOOD ORDERABLES Performing Organization Address City/[facility]/ZIP Co de Phone Number [facility] [address] [place] [address], [place] [phone] * Vitamin D 25 hydroxy (09/30/2024 12:21 PM EST) Pathologist [facility] Vit D, 25-Hydroxy 37.6 30.0 - 80.0 ng/mL LAB CHEMISTRY METHOD 09/30/2024 3:03 PM EST [facility] Blood Venous blood specimen / Unknown Venipuncture / Unknown 09/30/2024 12:21 PM EST 09/30/2024 12:21 PM EST Miranda Godwin MD LAB BLOOD ORDERABLES [facility] [address] [place] [address], [place] [phone] * Lipid panel with reflex to direct LDL (09/30/2024 12:21 PM EST) Cholesterol 144 0 - 200 mg/dL LAB CHEMISTRY METHOD 09/30/2024 3:22 PM EST [facility] Triglycerides 105 0 - 150 mg/dL LAB CHEMISTRY METHOD 09/30/2024 3:22 PM EST [facility] HDL 58 >=40 mg/dL LAB CHEMISTRY METHOD 09/30/2024 3:22 PM EST [facility] LDL Calculated 65 0 - 100 mg/dL LAB CHEMISTRY METHOD 09/30/2024 3:22 PM [facility] VLDL Cholesterol César 21 mg/dL LAB CHEMISTRY METHOD 09/30/2024 3:22 PM EST [facility] Non HDL Chol. (LDL+VLDL) 86 <145 mg/dL LAB CHEMISTRY METHOD 09/30/2024 3:22 PM EST [facility] Chol/HDL Ratio 2.5 0.0 - 4.4 LAB CHEMISTRY METHOD 09/30/2024 3:22 PM [facility] Blood Venous blood specimen / Unknown Venipuncture / Unknown 09/30/2024 12:21 PM EST 09/30/2024 12:21 PM EST Miranda Godwin MD LAB BLOOD ORDERABLES [facility] [address] [place] [address], [place] [phone] * Comprehensive metabolic panel (09/30/2024 12:21 PM EST) Pathologist [facility] Sodium 136 133 - 145 mmol/L LAB CHEMISTRY METHOD 09/30/2024 3:22 PM EST [facility] Potassium 4.2 3.5 - 5.5 mmol/L LAB CHEMISTRY METHOD 09/30/2024 3:22 PM [facility] Chloride 102 96 - 110 mmol/L LAB CHEMISTRY METHOD 09/30/2024 3:22 PM [facility] CO2 31 21 - 32 mmol/L LAB CHEMISTRY METHOD 09/30/2024 3:22 PM [facility] Anion Gap 3 3 - 11 LAB CHEMISTRY METHOD 09/30/2024 3:22 PM [facility] Glucose 84 70 - 100 mg/dL LAB CHEMISTRY METHOD 09/30/2024 3:22 PM [facility] BUN 11 5 - 25 mg/dL LAB CHEMISTRY METHOD 09/30/2024 3:22 PM [facility] Creatinine 0.65 0.50 - 1.10 mg/dL LAB CHEMISTRY METHOD 09/30/2024 3:22 PM [facility] eGFR 121 >=60 mL/min/1. 73m2 LAB CHEMISTRY METHOD 09/30/2024 3:22 PM [facility] Comment:Calculation based on the??Chronic Kidney Disease Epidemiology Collaboration (CKD-EPI) equation refit??without adjustment for race. BUN/Creatinine Ratio 16.9 LAB CHEMISTRY METHOD 09/30/2024 3:22 PM [facility] Calcium 9.6 8.5 - 10.5 mg/dL LAB CHEMISTRY METHOD 09/30/2024 3:22 PM [facility] AST (SGOT) 13 10 - 42 unit/L LAB CHEMISTRY METHOD 09/30/2024 3:22 PM [facility] ALT (SGPT) 24 10 - 60 unit/L LAB CHEMISTRY METHOD 09/30/2024 3:22 PM [facility] Alkaline Phosphatase 50 42 - 121 unit/L LAB CHEMISTRY METHOD 09/30/2024 3:22 PM [facility] Total Protein 7.7 6.0 - 8.0 g/dL LAB CHEMISTRY METHOD 09/30/2024 3:22 PM [facility] Albumin 4.2 3.2 - 5.0 g/dL LAB CHEMISTRY METHOD 09/30/2024 3:22 PM EST [facility] Total Bilirubin 0.5 0.0 - 1.4 mg/dL LAB CHEMISTRY METHOD 09/30/2024 3:22 PM EST [facility] Blood Venous blood specimen / Unknown Venipuncture / Unknown 09/30/2024 12:21 PM EST 09/30/2024 12:21 PM EST Miranda Godwin MD LAB BLOOD ORDERABLES [facility] [address] [place] [address], [place] [phone] * (ABNORMAL) Vitamin B12 (09/30/2024 12:21 PM EST) Pathologist [facility] Vitamin B-12 1,283(H) 250 - 900 pcg/mL LAB CHEMISTRY METHOD 09/30/2024 3:22 PM EST [facility] Blood Venous blood specimen / Unknown Venipuncture / Unknown 09/30/2024 12:21 PM EST 09/30/2024 12:21 PM EST Miranda Godwin MD LAB BLOOD ORDERABLES [facility] [address] [place] [address], [place] [phone] * Hemoglobin A1c (09/30/2024 12:21 PM EST) Pathologist [facility] Hemoglobin A1C 5.0 <6.5 % LAB CHEMISTRY METHOD 09/30/2024 9:13 PM EST [facility] Mean Bld Glu Estim. 97 mg/dL LAB CHEMISTRY METHOD 09/30/2024 9:13 PM EST [facility] Blood Venous blood specimen / Unknown Venipuncture / Unknown 09/30/2024 12:21 PM EST 09/30/2024 12:21 PM EST Miranda Godwin MD LAB BLOOD ORDERABLES Performing Organization Address City/State/[facility] Co de Phone Number [facility] [address] [place] [address], documented in this encounter Visit Diagnoses Diagnosis Encounter for annual physical exam- Primary Acne, unspecified acne type Pain of left lower extremity Neck pain Cervicalgia Brain aneurysm Cerebral aneurysm, nonruptured Vitamin D deficiency Other fatigue Encounter for lipid screening for cardiovascular disease Other abnormal glucose documented in this encounter Additional Health Concerns Assessment Noted Time PHQ-9 Depression Total Score: 0 09/29/19 25 2:22 PM EST documented as of this encounter Care Teams [employer] Incident Responder Relationship Specialty Start Date End Date Miranda Godwin MD [address] [place] [address] PCP - General 04/16/23 documented as of this encounter
--- OUTSIDE RECORDS SUMMARY | 2024-10-06 10:43 | XMS_ITS | Encounter Summary ---
Author Organization [facility] Address [address] [place] [address] Care Team Providers Care Die Press Operator Name Role Phone Miranda Godwin MD Primary Care Provider [phone] Reason for Visit * Reason Onset Date Comments APPOINTMENT CALL 09/26/2024 Pt called 8:13A M to ask about her referral and scheduling appointment. Explained to Pt that we have reached out to Provider to review and schedule, to see Pt in [place]. Confirmed Pt information and explained we will continue to follow this today. Pt asked that we please get back to her as soon as we can. Encounter Details Date Type Department Care Team (Late st Contact Info) Description 09/26/2024 Telephone Neurosurgery [facility] [address] [place] [address] Magda Sullivan MA APPOINTMENT CALL (Pt called 8:13AM to ask about her referral and scheduling appointment. Explained to Pt that we have reached out to Provider to review and schedule, to see Pt in [place]. Confirmed Pt information and explained we will continue to follow this today. Pt asked that we please get back to her as soon as we can. ) Social History Tobacco Use Types Packs/Day Years Used Date Smoking Tobacco: Never Smokeless Tobacco: Never Alcohol Use Standard Drinks/Week Comments Never 0 (1 standard drink = 0.6 oz pur e alcohol) Sex and Gender Information Value Date Recorded Sex Assigned at Female 09/22/2024 4:53 PM EST Gender Identity Female 09/22/2024 4:53 PM EST Sexual Orientation Straight 09/22/2024 4: 53 PM EST Job Start Date Occupation Industry Not on file Not on file Not on file documented as of this encounter Progress Notes * Magda Sullivan MA - 09/26/2024 8:13 AM EST Pt called 8:13AM to ask about her referral and scheduling appointment. Explained to Pt that we havereached out to Provider to review and schedule, to see Pt in [place]. Confirmed Pt information and explained we will continue to follow this today. Pt asked that we please get back to her as soonas we can. documented in this encounter Plan of Treatment Upcoming Encounters Date Type Department Care Team (Late st Contact Info) Description 10/24/2024 9:00 AM EST Consult Neurosurgery [facility] [address] [place] [address] Shiva Rodarte MD [address] [place] [id number] 11/24/2024 2:30 PM EDT Consult Vascular Surgery - [place] [address] [facility] [address] [place] [address] Blanco Roman MD [address] [facility] [address] [place] [address] documented as of this encounter Visit Diagnoses Not on filedocumented in this encounter Care Teams Die Press Operator Relationship Specialty Start Date End Date Miranda Godwin MD [address] [facility] [address] [place] [address] PCP - General 04/16/23 documented as of this encounter
--- OUTSIDE RECORDS SUMMARY | 2024-10-06 10:44 | XMS_ITS | Encounter Summary ---
Author Organization [facility] Address [address] [place] [address] Care Team Providers Care Senior Specialist Name Role Phone Miranda Godwin MD Primary Care Provider Reason for Referral * Consultation (Routine) - Authorized Specialty Diagnoses / Procedures Referred By Contac t Referred To Contact Neurosurgery Diagnoses Right internal carotid artery aneurysm Rj Stern PA [address] [place] [id number] [facility] Neuro[facility] [place] [address] [facility] [address] [place] [address] Referral ID Status Reason Start Date Expiration Date Visits Requested Visits Authorized [id number] Authorized Specialty Services Required 09/22/2024 09/22/2025 1 1 * Consultation (Routine) - Authorized Specialty Diagnoses / Procedures Referred By Lainey t Referred To Contact Vascular Surgery Diagnoses Right internal carotid artery aneurysm Rj Stern PA [address] [place] [address] [facility] Vascular Surgery [place] [address] [facility] [address] [place] [address] Referral ID Status Reason Start Date Expiration Date Visits Requested Visits Authorized [id number] Authorized Specialty Services Required 09/22/2024 09/22/2025 1 1 Reason for Visit * Reason Comments Altered Mental Status Pt biba from home after taking unknown medication per ems Encounter Details Date Type Department Care Team (Late st Contact Info) Description 09/22/2024 4:39 PM EST - 09/22/2024 11:[address] [facility] Emergency [address] [place] [phone] Miguel Mcduffie MD [address] [place] [address] [place] [phone] Right internal carotid artery aneurysm (Primary Dx) Discharge Disposition: Home or Self Care Social History Tobacco Use Types Packs/Day Years [...] Sign Reading Time Taken Comments Blood Pressure 103/56 09/22/2024 10:30 PM EST Pulse 54 09/22/2024 10:30 PM EST Temperature 37.3 ??C (99.2 ??F) 09/22/2024 8:19 PM ES T Respiratory Rate 17 09/22/2024 10:30 PM EST Oxygen Saturation 100% 09/22/2024 10:30 PM EST Inhaled Oxygen Concentration - - Weight 70.3 kg (155 lb) 09/22/2024 4:57 PM EST Height 154.9 cm (5' 1 ) 09/22/2024 4:57 PM EST Body Mass Index 29.29 09/22/2024 4:57 PM EST documented in this encounter Discharge Instructions * Discharge Instructions* MINGO Darden - 09/22/2024 10:24 PM EST It is possible that you may have experienced a seizure earlier today. Considering that you do not have a history of seizures, and no other explanation for your symptoms, you were started on a medication called Keppra. Take this twice daily. This medication may make you drowsy, so it is important that you do not drive a car, drink alcohol, or operate any other heavy machinery while on this medication. CT imaging confirm that you have an aneurysm of one of your internal carotid arteries. I have givenyou referrals to both vascular surgery as well as neurosurgery. You should not drive until you have been cleared by neurosurgery. Return immediately to the emergency department any new or worsening symptoms. * Attachments The following attachments cannot be sent through Care Everywhere. * Brain Aneurysm: General Info (Icelandic) * Seizure (Icelandic) documented in this encounter Medications at Time of Discharge Medication Sig Dispensed Refills Start Date End Date benzoyl peroxide (Foaming Acne Face Wash) 10 % external wash Aplly 2 times/day 04/16/2023 levETIRAcetam (KEPPRA) 500 mg tablet Take 1 tablet (500 mg total) by mouth 2 (two) times a day for 14 days. 28 tablet 09/22/2024 multivitamin tablet Take by mouth. documented as of this encounter Ordered Prescriptions Prescription Sig Dispensed Refills Start Date End Da te levETIRAcetam (KEPPRA) 500 mg tablet Take 1 tablet (500 mg total) by mouth 2 (two) times a day for 14 days. 28 tablet 09/22/2024 documented in this encounter Discharge Disposition Disposition Code Departure Means Destination Comment s Home or Self Care documented in this encounter Progress Notes * Carlotta Burch RN - 09/22/2024 4:48 PM EST Pt was biba from home. Per EMS pt was outside shoveling and took flexeril for pain. En route to [facility] stated she had a decrease in GCS. Pt arousal to verbal stimuli. * MINGO Darden - 09/22/2024 4:[address] [facility] Emergency Department Encounter Note Patient Name: Missy García Initial Evaluation: 09/22/2024 : 1995 Patient's PCP: Miranda Godwin MD Emergency Physician: MINGO Fernandez History of Present Illness Chief Complaint: Chief Complaint Patient presents with Altered Mental Status Pt biba from home after taking unknown medication per ems HPI: Missy is a 29 year-old female who is s/p cholecystectomy, otherwise without significant medical history; presents for evaluation of transient episode of left-sided numbness. She was feeling stiff earlier in the day and took a dose of her prescribed cyclobenzaprine. Reportedly tolerated this well. Suddenly while opening up an [employer] package, began feeling weird , namely with a cool sensation and numbness down the left side of her body. This worried her, so she prompted her son to call EMS. Per EMS report, patient was at the sidewalk waiting for their arrival. En route, she had acutely decreased responsiveness. I initially evaluated the patient in the ambulance bay, she was arousable to my voice, and apart from feeling quite somnolent, and apparently lethargic, denied any acute complaints to me. I will note, formulation of this HPI has evolved with time as patient has returned to her baseline mentation. Initially there was very limited information to go off of, on the EMS report, then later patient was able to identify that she had taken cyclobenzaprine but was not quite able to articulatethe full event. Denies fever, chills, c/p, sob, cough, abd pain, n/v/d/c. No headache, LOC, lightheadedness, dizziness. No dysuria, frequency, or hematuria. ROS: I have performed a ROS with the pertinent positives and negatives documented in the history ofpresent illness. Previous History Past Medical History: Diagnosis Date Heartburn DX:Heartburn Past Surgical History: Procedure Laterality Date CHOLECYSTECTOMY 2019 PROCEDURE: [place] CHOLECYSTECTOMY Social History Tobacco Use Smoking status: Never Smokeless tobacco: Never Substance Use Topics Alcohol use: Never Drug use: Never Family History Problem Relation Name Age of Onset Diabetes Maternal Grandmother No Known Problems Maternal Grandfather Anemia Mother No Known Problems Father No Known Problems Sister No Known Problems Sister No Known Problems Brother No Known Problems Brother Breast cancer Neg Hx Ovarian cancer Neg Hx Colon cancer Neg Hx has No Known Allergies. No current facility-administered medications on file prior to encounter. Current Outpatient Medications on File Prior to Encounter Medication Sig Dispense Refill benzoyl peroxide (Foaming Acne Face Wash) 10 % external wash Aplly 2 times/day multivitamin tablet Take by mouth. Physical Exam ED Triage Vitals [09/22/24 1657] Temp Heart Rate Resp BP 36.4 ??C (97.6 ??F) 66 14 103/53 SpO2 Temp Source Heart Rate Source Patient Position 98 % Oral Monitor Lying BP Location FiO2 (%) Left arm -- GENERAL: Somnolent, lethargic. Actively keeping eyes closed. SKIN: [place], warm, dry. HEENT: EOMI. NECK: Supple, full ROM. CARDIOVASCULAR: Heart regular rate and rhythm. No discernible MRG. PULMONARY: Breathing adequately on room air. CTAB. ABDOMINAL: Soft, nondistended, nontender throughout. MUSCULOSKELETAL: Nonpainful movements of all extremities bilaterally, equal strength bilaterally NEURO: AOx3. Equal strength and sensation bilaterally. No convulsions. Results Labs Reviewed BASIC METABOLIC PANEL - Abnormal Result Value Sodium 139 Potassium 3.4 (*) Chloride 105 CO2 29 Anion Gap 5 Glucose 101 (*) BUN 10 Creatinine 0.72 eGFR 115 BUN/Creatinine Ratio 13.9 Calcium 9.0 CBC WITH AUTO DIFFERENTIAL - Abnormal WBC 8.3 RBC 3.90 Hemoglobin 11.9 Hematocrit 36.0 MCV 92.5 MCH 30.6 MCHC 33.1 RDW 11.9 Platelets 267 MPV 12.0 (*) NRBC 0.0 NRBC Absolute 0.00 Neutrophils Relative 47.5 Lymphocytes Relative 42.9 Monocytes Relative 5.8 Eosinophils Relative 3.0 Basophils Relative 0.6 Immature Granulocytes Relative 0.2 Neutrophils Absolute 3.92 Lymphocytes Absolute 3.55 Monocytes Absolute 0.48 Eosinophils Absolute 0.25 Basophils Absolute 0.05 Immature Granulocytes Absolute 0.02 ACETAMINOPHEN LEVEL - Abnormal Acetaminophen Level <2.0 (*) SALICYLATE LEVEL - Abnormal Salicylate Level <1.7 (*) MAGNESIUM - Normal Magnesium 2.1 PHENCYCLIDINE, URINE - Normal PCP Scrn, Ur Negative DRUG ABUSE SCREEN 8A PANEL, URINE - Normal Amphetamine Screen, Ur Negative Barbiturate Screen, Ur Negative Benzodiazepine Screen, Ur Negative Cocaine Screen, Ur Negative Opiate Screen, Ur Negative Cannabinoid (THC) Screen, Ur Negative Oxycodone Screen, Ur Negative Fentanyl, Ur Negative Narrative: Assay cutoffs: Amphetamines 1000 ng/mL Barbiturates 200 ng/mL Benzodiazepines 200 ng/mL Cocaine 300 ng/mL Fentanyl 1 ng/mL Opiates 300 ng/mL Oxycodone 100 ng/mL THC 50 ng/mL Semi-quantitative assay for screening purposes only. Unconfirmed screening result should not be used for non-medical purposes. *ALTERNATE METHOD CONFIRMATION DONE UPON REQUEST ONLY* ETHANOL - Normal Ethanol Level <3 HCG, SERUM, QUALITATIVE - Normal hCG Qual Negative FENTANYL, URINE - Normal Fentanyl, Ur Negative Narrative: Assay cutoff 1 ng/mL Semi-quantitative assay for screening purposes only. Unconfirmed screening result should not be used for non-medical purposes. *ALTERNATE METHOD CONFIRMATION DONE UPON REQUEST ONLY* METHADONE SCREEN, URINE - Normal Methadone Screen, Urine Negative LACTATE, WITH REFLEX - Normal LACTIC ACID 2.0 POC , URINE DIAGNOSTIC - Normal HCG, Ur POC Negative POC hCG Int QC Pass? Yes CBC AND DIFFERENTIAL Narrative: The following orders were created for panel order CBC and differential. Procedure Abnormality Status --------- ------ CBC auto differential[[id number]] Abnormal Final result Please view results for these tests on the individual orders. PROLACTIN Prolactin 86.40 Abnormal Labs Reviewed BASIC METABOLIC PANEL - Abnormal; Notable for the following components: Result Value Potassium 3.4 (*) Glucose 101 (*) All other components within normal limits CBC WITH AUTO DIFFERENTIAL - Abnormal; Notable for the following components: MPV 12.0 (*) All other components within normal limits ACETAMINOPHEN LEVEL - Abnormal; Notable for the following components: Acetaminophen Level <2.0 (*) All other components within normal limits SALICYLATE LEVEL - Abnormal; Notable for the following components: Salicylate Level <1.7 (*) All other components within normal limits CT Angio Head/Neck wo and/or w Contrast Final Result 1. Fusiform partially calcified 6 mm aneurysmal dilatation of the right ICA carotid terminus. 2. No large vessel occlusion. If clinical concern persists consider follow-up MRI. 3. Patent cervical vasculature. This document has been electronically signed by: Javid Buckner MD on 09/22/2024 22:08:24 CT Head wo Contrast Final Result Addendum (preliminary) ADDENDUM: Addendum: Images discussed with Sung AGUILA, [...] by: Javid Buckner MD on 09/22/2024 20:43:45 Final No acute intracranial findings. Additional findings as described. This document has been electronically signed by: Javid Buckner MD on 09/22/2024 19:53:50 I have discussed the incidental/abnormal imaging and/or lab abnormalities with the patient and haveinstructed them the need for further evaluation and workup with their primary care doctor. I have provided the patient with a paper copy of the abnormality. The laboratory results, imaging results and other diagnostic exam results were reviewed in the EMR. EKG Interpretation Critical Care Time None Differential Diagnosis Adverse drug reaction Metabolic derangement Metabolic encephalopathy Acute CVA-less likely Seizure disorder Depression ? Medical Decision Making Considering vague history and complaint, we will proceed with broad workup including laboratories, drug screen, CT brain. She does not have any focal neurologic deficits on my assessment. Acute CVA less likely in this otherwise young and healthy 29-year-old female. IV fluids in the interim. Cardiacmonitor. Reassessment: Laboratory workup rather unremarkable, including toxicology. Prolactin elevated to 86.40, above normal range for non female. She denies any history of she denies any seizure history, did not have any convulsive behavior observed by EMS, or any incontinence or oral trauma. Karen garza could have experienced a first-time seizure. Noncontrast CT was obtained and showed no acute intracranial findings or subarachnoid hemorrhage, however initial report mentioned a questionable pipeline stent graft along the right carotid terminus with 7 mm aneurysmal dilatation, should be correlated with prior procedure and clinically. Discussed these results specifically with the patient on2 separate occasions, she adamantly denies any prior head or neck procedures. I then discussed withreading radiologist who states that considering this, likely findings of a calcified aneurysm neck vessel, and recommends CTA head to follow. Patient is agreeable, this has been ordered. Of note, patient has had progressive return to her baseline mentation, she continues to be without complaint or focal neurologic deficit. 10:25 PM: CTA confirms fusiform partially calcified 6 mm aneurysmal dilatation of the right ICA carotid terminus. She remains medically and hemodynamically stable, mentating appropriately. Discussed these results with the patient. Referrals for neurosurgery and vascular surgeries have been submitted. Will start the patient on Keppra. I have advised her against driving or operating heavy material until cleared by neurosurgery. Red flag symptoms and return precautions discussed, all questions asked and answered, plan for discharge with outpatient follow-up. Case was discussed with my attending physician, Dr. Mcduffie. Netlistation software was utilized for documentation and may have resulted in unintentional typographical errors. Clinical Impressions as of 09/22/242225 Right internal carotid artery aneurysm Medications levETIRAcetam (KEPPRA) tablet 500 mg (has no administration in time range) methocarbamoL (ROBAXIN) tablet 500 mg (has no administration in time range) lactated Ringer's bolus 1,000 mL (0 mL intravenous Stopped 09/22/241840) lactated Ringer's bolus 1,000 mL (0 mL intravenous Stopped 09/22/242148) sodium chloride 0.9 % flush 10 mL (10 mL intravenous Given 09/22/242109) iopamidoL (ISOVUE-370) 370 mg iodine /mL (76 %) injection 100 mL (90 mL intravenous Given 09/22/242110) Procedures Procedures Diagnosis 1. Right internal carotid artery aneurysm Disposition Discharge ED Prescriptions Medication Sig Dispense Start Date End Date Auth. Provider levETIRAcetam (KEPPRA) 500 mg tablet Take 1 tablet (500 mg total) by mouth 2 (two) times a day for 14 days. 28 tablet 09/22/2024 10/06/2024 MINGO Darden Physician Attestation Electronically signed by MINGO Fernandez PA 09/22/24 1713 MINGO Darden 09/22/24 1731 MINGO Darden 09/22/24 1758 This is a split/shared visit with MINGO Darden. I personally performed the medical decision making (MDM) for the care of this patient on 09/22/24 as documented below Seen and examined by along with the PA agree with assessment and plan we will add on additional toxlabs to exclude intentional overdose. MINGO Fernandez 09/22/24 10:26 PM EST MINGO Fernandez MD 09/22/24 1801 MINGO Darden 09/22/242046 MINGO Darden 09/22/242103 MINGO Darden 09/22/242225 documented in this encounter Plan of Treatment Upcoming Encounters Date Type Department Care Team (Late st Contact Info) Description 10/24/2024 9:00 AM EST Consult Neurosurgery [facility] [address] [place] [phone] Shiva Rodarte MD [address] [facility] [address] [place] [address] 11/24/2024 2:30 PM EDT Consult Vascular Surgery - [place] [address] [place] [address] Blanco Roman MD [address] [place] [address] Scheduled Referrals Name Type Priority Associated Diagnoses Order Schedule Ambulatory referral to Vascular Surgery Outpatient Referral Routine 1 Occurrences starting 09/22/2024 until 09/22/2025 Ambulatory referral to Neurosurgery Outpatient Referral Routine 1 Occurrences starting 09/22/2024 until 09/22/2025 documented as of this encounter Procedures Procedure Name Priority Date/Time Associated Diagnosis Comments CT ANGIO HEAD/NECK WO AND/OR W CONTRAST STAT 09/22/2024 9:[address] HEAD WO CONTRAST STAT 09/22/2024 7 :28 PM EST POC , URINE DIAGNOSTIC STAT 09/22/2024 7:05 PM EST DRUG ABUSE SCREEN 8A PANEL, URINE STAT 09/22/2024 6:49 PM EST METHADONE SCREEN, URINE STAT 09/22/2024 6:49 PM EST PHENCYCLIDINE, URINE STAT 09/22/2024 6:49 PM EST FENTANYL, URINE STAT 09/22/2024 6:49 PM EST LACTATE, WITH REFLEX STAT 09/22/2024 6:09 PM EST CBC WITH AUTO DIFFERENTIAL STAT 09/22/2024 4:55 PM EST PROLACTIN STAT 09/22/2024 4:55 PM EST CBC AND DIFFERENTIAL STAT 09/22/2024 4:55 PM EST HCG, SERUM, QUALITATIVE STAT Add-on 09/22/2024 4:55 PM EST MAGNESIUM STAT 09/22/2024 4:55 PM EST ETHANOL STAT 09/22/2024 4:55 PM EST ACETAMINOPHEN LEVEL STAT Add-on 09/22/2024 4 :55 PM EST SALICYLATE LEVEL STAT Add-on 09/22/2024 4:55 PM EST BASIC METABOLIC PANEL STAT 09/22/2024 4:55 PM EST documented in this encounter Results * CT Angio Head/Neck wo and/or w [...] Javid Buckner MD on 09/22/2024 22:08:[address] PROCEDURES * CT Head wo Contrast [...] POINT OF CARE TEST ENTER/EDIT ORDERABLES * Methadone, urine (09/22/2024 6:49 PM EST) Methadone Screen, Urine Negative Negative LAB CHEMISTRY METHOD 09/22/2024 7:39 PM EST [facility] Comment: Assay cutoff 300 ng/mL Semi-quantitative assay for screening purposes only. Unconfirmed screening result should not be used for non-medical purposes. *ALTERNATE METHOD CONFIRMATION DONE UPON REQUEST ONLY* Urine Urine specimen obtained by clean catch procedure / Unknown Non-blood Collection / Unknown 09/22/2024 6:49 PM EST 09/22/2024 7:04 PM EST Miguel Mcduffie MD LAB URINE ORDERABLE S Performing Organization Address [facility]/ZIP Co de Phone Number [facility] [address] [place] [address], * Fentanyl urine (09/22/2024 6:49 PM EST) Fentanyl, Ur Negative Negative LAB CHEMISTRY METHOD 09/22/2024 7:39 PM EST [facility] Urine Urine specimen obtained by clean catch procedure / Unknown Non-blood Collection / Unknown 09/22/2024 6:49 PM EST 09/22/2024 7:04 PM EST Narrative [facility] - 09/22/2024 7:39 PM EST Assay cutoff 1 ng/mL Semi-quantitative assay for screening purposes only. Unconfirmed screening result should not be used for non-medical purposes. *ALTERNATE METHOD CONFIRMATION DONE UPON REQUEST ONLY* Miguel Mcduffie MD LAB URINE ORDERABLE S Performing Organization Address City/[facility]/ZIP Co de Phone Number [facility] [address] [place] [address], * Drug abuse screen 8a panel, urine (09/22/2024 6:49 PM EST) [facility] Amphetamine Screen, Ur Negative Negative LAB CHEMISTRY METHOD 09/22/2024 7:39 PM EST [facility] Comment:Certain OTC medicati ons containing ephedrine, phenylephrine, pseudoephedrine and phenylpropanolamine can cause false positive results. Barbiturate Screen, Ur Negative Negative LAB CHEMISTRY METHOD 09/22/2024 7:39 PM EST [facility] Benzodiazepine Screen, Ur Negative Negative LAB CHEMISTRY METHOD 09/22/2024 7:[address] [facility] Cocaine Screen, Ur Negative Negative LAB CHEMISTRY METHOD 09/22/2024 7:[address] [facility] Opiate Screen, Ur Negative Negative LAB CHEMISTRY METHOD 09/22/2024 7:[address] [facility] Cannabinoid (THC) Screen, Ur Negative Negative LAB CHEMISTRY METHOD 09/22/2024 7:[address] [facility] Comment:Specimens from patie nts taking pantoprazole sodium (Protonix) have been shown to produce false positive results. Oxycodone Screen, Ur Negative Negative LAB CHEMISTRY METHOD 09/22/2024 7:[address] [facility] Fentanyl, Ur Negative Negative LAB CHEMISTRY METHOD 09/22/2024 7:[address] [facility] Urine Urine specimen obtained by clean catch procedure / Unknown Non-blood Collection / Unknown 09/22/2024 6:49 PM EST 09/22/2024 7:04 PM EST [facility] - 09/22/2024 7:39 PM EST Assay [...] ONLY* Rj AGUILA LAB URINE ORDERAB LES Performing Organization Address [facility] Co de Phone Number [facility] [address] [place] [address], [place] [phone] * Phencyclidine, urine (09/22/2024 6:49 PM EST) Pathologist [facility] PCP Scrn, Ur Negative Negative LAB CHEMISTRY METHOD 09/22/2024 7:39 PM EST [facility] Comment: Assay cutoff 25 ng/mL Semi-quantitative assay for screening purposes only. Unconfirmed screening result should not be used for non-medical purposes. *ALTERNATE METHOD CONFIRMATION DONE UPON REQUEST ONLY* Urine Urine specimen obtained by clean catch procedure / Unknown Non-blood Collection / Unknown 09/22/2024 6:49 PM EST 09/22/2024 7:04 PM EST Rj AGUILA LAB URINE ORDERAB LES Performing Organization Address [facility] de Phone Number [facility] [address] [place] [address], [place] [phone] * Lactate, with reflex (09/22/2024 6:09 PM EST) Pathologist [facility] LACTIC ACID 2.0 0.4 - 2.0 mmol/L LAB CHEMISTRY METHOD 09/22/2024 7:08 PM EST [facility] Blood Venous blood specimen / Unknown Venipuncture / Unknown 09/22/2024 6:09 PM EST 09/22/2024 6:30 PM EST Rj AGUILA LAB BLOOD ORDERAB LES Performing Organization Address [facility] Co de Phone Number [facility] [address] [place] [address], [place] [phone] * (ABNORMAL) Salicylate level (09/22/2024 4:55 PM EST) Salicylate Level <1.7(L) 2.0 - 29.0 mg/dL LAB CHEMISTRY METHOD 09/22/2024 6:01 PM EST [facility] Blood Venous blood specimen / Unknown Venipuncture / Unknown 09/22/2024 4:55 PM EST 09/22/2024 5:23 PM EST Miguel Mcduffie MD LAB BLOOD ORDERABLE S [facility] [address] [place] [address], [place] [phone] * (ABNORMAL) Acetaminophen level (09/22/2024 4:55 PM EST) Acetaminophen Level <2.0(L) 10.0 - 30.0 mcg/mL LAB CHEMISTRY METHOD 09/22/2024 6:01 PM EST [facility] Blood Venous blood specimen / Unknown Venipuncture / Unknown 09/22/2024 4:55 PM EST 09/22/2024 5:23 PM EST Miguel Mcduffie MD LAB BLOOD ORDERABLE S [facility] [address] [place] [address], [place] [phone] * hCG, serum, qualitative (09/22/2024 4:55 PM EST) hCG Qual Negative Negative 09/22/2024 6:19 PM EST [facility] Blood Venous blood specimen / Unknown Venipuncture / Unknown 09/22/2024 4:55 PM EST 09/22/2024 5:23 PM EST Rj AGUILA LAB BLOOD ORDERAB LES Performing Organization Address [facility]/ZIP Co de Phone Number [facility] [address] [place] [address], * Prolactin (09/22/2024 4:55 PM EST) [facility] Prolactin 86.40 See Comment ng/mL LAB CHEMISTRY METHOD 09/22/2024 6:01 PM EST [facility] Comment: Prolactin Reference Ranges (ng/mL) ??Non ?2.2 - ??30.3 ? 8.1 - 347.6 ??Postmenopausal 0.7 - ??31.5 Blood Venous blood specimen / Unknown Venipuncture / Unknown 09/22/2024 4:55 PM EST 09/22/2024 5:23 PM EST Rj AGUILA LAB BLOOD ORDERAB LES Performing Organization Address [facility]/ZIP Co de Phone Number [facility] [address] [place] [address], * (ABNORMAL) CBC auto differential (09/22/2024 4:55 PM EST) [facility] WBC 8.3 4.8 - 10.8 K/mcL LAB HEMETOLOGY METHOD 09/22/2024 5:35 PM EST [facility] RBC 3.90 3.80 - 4.80 M/mcL LAB HEMETOLOGY METHOD 09/22/2024 5:35 PM EST [facility] Hemoglobin 11.9 11.5 - 16.0 g/dL LAB HEMETOLOGY METHOD 09/22/2024 5:35 PM EST [facility] Hematocrit 36.0 35.0 - 47.0 % LAB HEMETOLOGY METHOD 09/22/2024 5:35 PM EST [facility] MCV 92.5 79.0 - 98.0 FL LAB HEMETOLOGY METHOD 09/22/2024 5:[address] [facility] MCH 30.6 27.0 - 32.0 pcg LAB HEMETOLOGY METHOD 09/22/2024 5:[address] [facility] MCHC 33.1 32.0 - 37.0 g/dL LAB HEMETOLOGY METHOD 09/22/2024 5:[address] [facility] RDW 11.9 11.0 - 15.0 % LAB HEMETOLOGY METHOD 09/22/2024 5:[address] [facility] Platelets 267 130 - 400 K/mcL LAB HEMETOLOGY METHOD 09/22/2024 5:[address] [facility] MPV 12.0(H) 7.0 - 11.0 FL LAB HEMETOLOGY METHOD 09/22/2024 5:[address] [facility] NRBC 0.0 <1.0 % LAB HEMETOLOGY METHOD 09/22/2024 5:[address] [facility] NRBC Absolute 0.00 <0.10 K/mcL LAB HEMETOLOGY METHOD 09/22/2024 5:[address] [facility] Neutrophils Relative 47.5 % LAB HEMETOLOGY METHOD 09/22/2024 5:[address] [facility] Lymphocytes Relative 42.9 % LAB HEMETOLOGY METHOD 09/22/2024 5:[address] [facility] Monocytes Relative 5.8 % LAB HEMETOLOGY METHOD 09/22/2024 5:[address] [facility] Eosinophils Relative 3.0 % LAB HEMETOLOGY METHOD 09/22/2024 5:[address] [facility] Basophils Relative 0.6 % LAB HEMETOLOGY METHOD 09/22/2024 5:[address] [facility] Immature Granulocytes Relative 0.2 % LAB HEMETOLOGY METHOD 09/22/2024 5:[address] [facility] Neutrophils Absolute 3.92 1.50 - 7.00 K/mcL LAB HEMETOLOGY METHOD 09/22/2024 5:35 PM EST [facility] Lymphocytes Absolute 3.55 1.00 - 5.00 K/[facility] LAB HEMETOLOGY METHOD 09/22/2024 5:35 PM EST [facility] Monocytes Absolute 0.48 0.20 - 1.00 K/[facility] LAB HEMETOLOGY METHOD 09/22/2024 5:35 PM EST [facility] Eosinophils Absolute 0.25 0.00 - 0.50 K/[facility] LAB HEMETOLOGY METHOD 09/22/2024 5:35 PM EST [facility] Basophils Absolute 0.05 0.00 - 0.20 K/[facility] LAB HEMETOLOGY METHOD 09/22/2024 5:35 PM EST [facility] Immature Granulocytes Absolute 0.02 0.00 - 0.03 K/[facility] LAB HEMETOLOGY METHOD 09/22/2024 5:35 PM EST [facility] Blood Venous blood specimen / Unknown Venipuncture / Unknown 09/22/2024 4:55 PM EST 09/22/2024 5:23 PM EST Rj AGUILA LAB BLOOD ORDERAB LES Performing Organization Address City/[facility]/ZIP Co de Phone Number [facility] [address] [place] [address], * Ethanol (09/22/2024 4:55 PM EST) Ethanol Level <3 0 - 10 mg/dL LAB CHEMISTRY METHOD 09/22/2024 6:02 PM EST [facility] Blood Venous blood specimen / Unknown Venipuncture / Unknown 09/22/2024 4:55 PM EST 09/22/2024 5:23 PM EST Rj AGUILA LAB BLOOD ORDERAB LES [facility] [address] [place] [address], [place] [phone] * Magnesium (09/22/2024 4:55 PM EST) [facility] Magnesium 2.1 1.9 - 2.6 mg/dL LAB CHEMISTRY METHOD 09/22/2024 5:58 PM EST [facility] Blood Venous blood specimen / Unknown Venipuncture / Unknown 09/22/2024 4:55 PM EST 09/22/2024 5:23 PM EST Rj AGUILA LAB BLOOD ORDERAB LES [facility] [address] [place] [address], [place] [phone] * (ABNORMAL) Basic metabolic panel (09/22/2024 4:55 PM EST) [facility] Sodium 139 133 - 145 mmol/L LAB CHEMISTRY METHOD 09/22/2024 5:[address] [facility] Potassium 3.4(L) 3.5 - 5.5 mmol/L LAB CHEMISTRY METHOD 09/22/2024 5:[address] [facility] Chloride 105 96 - 110 mmol/L LAB CHEMISTRY METHOD 09/22/2024 5:[address] [facility] CO2 29 21 - 32 mmol/L LAB CHEMISTRY METHOD 09/22/2024 5:[address] [facility] Anion Gap 5 3 - 11 LAB CHEMISTRY METHOD 09/22/2024 5:[address] [facility] Glucose 101(H) 70 - 100 mg/dL LAB CHEMISTRY METHOD 09/22/2024 5:[address] [facility] BUN 10 5 - 25 mg/dL LAB CHEMISTRY METHOD 09/22/2024 5:[address] [facility] Creatinine 0.72 0.50 - 1.10 mg/dL LAB CHEMISTRY METHOD 09/22/2024 5:58 PM EST [facility] eGFR 115 >=60 mL/min/1. 73m2 LAB CHEMISTRY METHOD 09/22/2024 5:58 PM EST [facility] Comment:Calculation based on the??Chronic Kidney Disease Epidemiology Collaboration (CKD-EPI) equation refit??without adjustment for race. BUN/Creatinine Ratio 13.9 LAB CHEMISTRY METHOD 09/22/2024 5:58 PM EST [facility] Calcium 9.0 8.5 - 10.5 mg/dL LAB CHEMISTRY METHOD 09/22/2024 5:58 PM EST [facility] Blood Venous blood specimen / Unknown Venipuncture / Unknown 09/22/2024 4:55 PM EST 09/22/2024 5:23 PM EST Rj AGUILA LAB BLOOD ORDERAB LES [facility] Organization Address City/State/ZIP Co de Phone Number [facility] [address] [place] [address], documented in this encounter Visit Diagnoses Diagnosis Right internal carotid artery aneurysm- Primary documented in this encounter Administered Medications Inactive Administered Medications - up to 3 most recent administrations Medication Order MAR Action Action Date Dose Rate Site iopamidoL (ISOVUE-370) 370 mg iodine /mL (76 %) injection 100 mL 100 mL, intravenous, Once in imaging, Starting on Sun09/22/24 at 2109, For 1 dose Given 09/22/2024 9:11 PM EST 90 mL lactated Ringer's bolus 1,000 mL 1,000 mL, intravenous, at 1,000 mL/hr, Administer over 1 Hours, Once, On Sun09/22/24 at 1649, For 1 dose New Bag 09/22/2024 5:00 PM EST 1,000 mL 100 0 mL/hr lactated Ringer's bolus 1,000 mL 1,000 mL, intravenous, at 1,000 mL/hr, Administer over 1 Hours, Once, On Sun09/22/24 at 1757, For 1 dose New Bag 09/22/2024 5:56 PM EST 1,000 mL 100 0 mL/hr levETIRAcetam (KEPPRA) tablet 500 mg 500 mg, oral, Once, On Sun09/22/24 at 2223, For 1 dose Given 09/22/2024 10:42 PM EST 500 mg methocarbamoL (ROBAXIN) tablet 500 mg 500 mg, oral, Once, On Sun09/22/24 at 2223, For 1 dose Given 09/22/2024 10:48 PM EST 500 mg sodium chloride 0.9 % flush 10 mL 10 mL, intravenous, Once, On Sun09/22/24 at 2110, For 1 dose Given 09/22/2024 9:10 PM EST 10 mL documented in this encounter Active and Recently Administered Medications Times are shown in EST. Scheduled Medication Order 09/20/2024 09/21/2024 09/22/2024 iopamidoL (ISOVUE-370) 370 mg iodine /mL (76 %) injection 100 mL (COMPLETED) 100 mL, intravenous, Once in imaging, Starting on Sun09/22/24 at 2109, For 1 dose 2110 (Given - Provid er: Gianluca Hough) lactated Ringer's bolus 1,000 mL (COMPLETED) 1,000 mL, intravenous, at 1,000 mL/hr, Administer over 1 Hours, Once, On Sun09/22/24 at 1649, For 1 dose 1700 (New Bag - Prov ider: Carlotta Burch RN)1841 (Stopped - Provider: Carlotta Burch RN) lactated Ringer's bolus 1,000 mL (COMPLETED) 1,000 mL, intravenous, at 1,000 mL/hr, Administer over 1 Hours, Once, On Sun09/22/24 at 1757, For 1 dose 1756 (New Bag - Prov ider: Carlotta Burch RN)2149 (Stopped - Provider: Benita Bey RN) levETIRAcetam (KEPPRA) tablet 500 mg (COMPLETED) 500 mg, oral, Once, On Sun09/22/24 at 2223, For 1 dose 2241 (Given - Provid er: Benita Bey RN) methocarbamoL (ROBAXIN) tablet 500 mg (COMPLETED) 500 mg, oral, Once, On Sun09/22/24 at 2223, For 1 dose 2247 (Given - Provid er: Benita Bey RN) sodium chloride 0.9 % flush 10 mL (COMPLETED) 10 mL, intravenous, Once, On Sun09/22/24 at 2110, For 1 dose 0 (Given - Provid er: Gianluca Hough) documented in this encounter Care Teams Senior Specialist Relationship Specialty Start Date End Date Miranda Godwin MD [address] [place] [address] PCP - General 04/16/23 documented as of this encounter
== END 2024-10-06 10:43 | disposition home or self-care (01) ==
PROVIDERS: PCP Student in an Organized Health Care Education/Training Program; Visit Provider Psychiatry & Neurology Neurology
DX: I67.1 Cerebral aneurysm, nonruptured (principal); G43.109 Migraine with aura, not intractable, without status migrainosus
CPT/HCPCS: 99214; G2211

== ENCOUNTER → 2024-10-06 10:05 | Outpatient (BNVA) | payer OTHER, SELFPAY | PROVIDERS: PCP Student in an Organized Health Care Education/Training Program; Visit Provider Psychiatry & Neurology Neurology | DX: G43.109 Migraine with aura, not intractable, without status migrainosus (principal); I67.1 Cerebral aneurysm, nonruptured | CPT/HCPCS: 99212 ==